=== PATIENT | female | born 1955 | race Caucasian/White ===

== ENCOUNTER 2017-01-26 07:22 | Emergency (ER) | payer OTHER ==
--- NOTE | 2017-01-26 10:28 | DIAGNOSTIC IMAGING REPORT ---
PROCEDURE: XR CHEST 1 VIEW INDICATION: CHEST PAIN TECHNIQUE: Portable AP view 09:40 a.m. COMPARISON: Chest 11/19/2015 FINDINGS: Lungs are clear. Heart and mediastinum are normal. Thorax is normal. IMPRESSION: 1. Negative chest.
--- NOTE | 2017-01-26 10:59 | DIAGNOSTIC IMAGING REPORT ---
PROCEDURE: ABDOMEN/PELVIS WITH CONTRAST CLINICAL INDICATION: RLQ AND FLANK PAIN TECHNIQUE: 125 ml of Isovue 300 were injected intravenously and axial images were obtained of the abdomen and pelvis with sagittal and coronal reformations. COMPARISON: None. FINDINGS: ABDOMEN: Mild atelectatic changes anteriorly bilaterally. Heart size is at the upper limits of normal. Small hiatal hernia. Multiple ingested pills sitting in the proximal stomach. Normal caliber abdominal aorta with moderate to heavy calcific atherosclerosis. Sub-centimeter upper pole cortical left renal cyst. Otherwise normal liver, gallbladder, adrenal glands, pancreas, right kidney, spleen, retroperitoneal vessels and ureters, stomach, upper bowel loops, and mesentery. A portion of the proximal colon sits dorsally in the right pericolic gutter. A short segment measuring about 3.5 cm of mid proximal colon demonstrates eccentric wall thickening, decreased luminal diameter, and mild hyperemia. Trace amount of pericolonic inflammation in this region and thickening of the lateral coronal fascia. Multiple small lymph nodes in the mesentery are seen. No extraluminal gas, diverticulosis, or adjacent fluid collection. The appendix is normal. PELVIS: The pelvic small bowel loops are normal. Normal amount of stool in the colon and rectum. The uterus, ovaries, urinary bladder, and pelvic vessels are normal. No adenopathy, free fluid, or pelvic mass. Intact osseous structures. IMPRESSION: 1. There is a short segment in the proximal colon demonstrating wall thickening, decreased luminal diameter, and trace pericolonic inflammation. While this could represent an early mild infectious colitis or potentially segmental colon contraction, neoplastic changes are suspected. Colonoscopy is recommended 2. Normal appendix. 3. Moderate to heavy systemic atherosclerosis. 4. Discussed with Dr. Argueta in the emergency room. All CT scans at this facility use dose modulation, iterative reconstruction, and/or weight-based dosing when appropriate to reduce radiation dose to as low as reasonably achievable.
--- NOTE | 2017-01-26 11:44 | ED CLINICAL REPORT ---
Clinical Report - Physicians/Mid Levels [facility] [address] [place] [address] 01/26/2017 7:23 Patient: RAHEL CHAMPAGNE Time Seen: 07:48. Arrived- By private vehicle. Historian- patient. HISTORY OF PRESENT ILLNESS Chief Complaint: ABDOMINAL PAIN. At its maximum, severity described as 8 / 10. When seen in the E.D., severity described as 8 / 10. Modifying factors. Not worsened by anything. Not relieved by anything. This started about about 5 days ago and is still present. It was abrupt in onset and has been intermittent and waxing/waning. It is described as cramping and it is described as located in the right lower quadrant and radiating to the low back. The patient has had nausea. No loss of appetite or vomiting. She has had loose stools (several days ago - normal since). This has occurred several times. Similar symptoms previously: None. REVIEW OF SYSTEMS No skin rash, chills, fever, calf pain or difficulty breathing. No pedal edema or palpitations. She has experienced sweats. She has had moderate, squeezing central chest pain (last week), currently gone, associated with shortness of breath. Has had similar symptoms of chest pain previously. No radiation. She has had a mild nonproductive cough (she attributes this to recent bronchitis that is improving). All systems otherwise negative, except as recorded above. PAST HISTORY See nurses notes. PCP - Ene Tirado. Problems: Sick Contact. Hives. Abdominal Pain. Tension-Type Headache. Anemia. Allergic Rhinitis. Hypokalemia. UTI - Urinary Tract Infection. Vertigo. Lumbar Strain. Depression. Bipolar Disorder. Fibromyalgia. Hypertension. Gastroesophageal Reflux Disease. Additional Surgeries: Breast biopsy. Medications: Omeprazole Oral. Hydrochlorothiazide Oral. Diovan Oral. Loratadine Oral 10 mg, daily. Allergies: No Known Drug Allergy. SOCIAL HISTORY Never smoker. No alcohol use or drug use. FAMILY HISTORY Heart disease in first-degree relative (mother and father); cancer in first-degree relative (mother). ADDITIONAL NOTES The nursing notes have been reviewed. PHYSICAL EXAM Vital Signs: 01/26/2017 07:31 BP: 189/89. HR: 82. RR: 18. O2 saturation: 100%. Temp: 98.5 F. Pain level now: 810. Have been reviewed. Appearance: Alert. Oriented X3. No acute distress. Eyes: Pupils equal, round and reactive to light. ENT: Pharynx normal. The mucous membranes are not dry. Neck: Normal inspection. Neck supple. CVS: Normal heart rate and rhythm. Heart sounds normal. Pulses normal. No decreased pulses. Respiratory: No respiratory distress. Breath sounds normal. Abdomen: Soft. Mild tenderness in the right upper quadrant. Bowel sounds normal. No organomegaly. No mass. LABS, X-RAYS, AND EKG Abdominal CT: PROCEDURE: ABDOMEN/PELVIS WITH CONTRAST CLINICAL INDICATION: RLQ AND FLANK PAIN TECHNIQUE: 125 ml of Isovue 300 were injected intravenously and axial images were obtained of the abdomen and pelvis with sagittal and coronal reformations. COMPARISON: None. FINDINGS: ABDOMEN: Mild atelectatic changes anteriorly bilaterally. Heart size is at the upper limits of normal. Small hiatal hernia. Multiple ingested pills sitting in the proximal stomach. Normal caliber abdominal aorta with moderate to heavy calcific atherosclerosis. Sub-centimeter upper pole cortical left renal cyst. Otherwise normal liver, gallbladder, adrenal glands, pancreas, right kidney, spleen, retroperitoneal vessels and ureters, stomach, upper bowel loops, and mesentery. A portion of the proximal colon sits dorsally in the right pericolic gutter. A short segment measuring about 3.5 cm of mid proximal colon demonstrates eccentric wall thickening, decreased luminal diameter, and mild hyperemia. Trace amount of pericolonic inflammation in this region and thickening of the lateral coronal fascia. Multiple small lymph nodes in the mesentery are seen. No extraluminal gas, diverticulosis, or adjacent fluid collection. The appendix is normal. PELVIS: The pelvic small bowel loops are normal. Normal amount of stool in the colon and rectum. The uterus, ovaries, urinary bladder, and pelvic vessels are normal. No adenopathy, free fluid, or pelvic mass. Intact osseous structures. IMPRESSION: 1. There is a short segment in the proximal colon demonstrating wall thickening, decreased luminal diameter, and trace pericolonic inflammation. While this could represent an early mild infectious colitis or potentially segmental colon contraction, neoplastic changes are suspected. Colonoscopy is recommended 2. Normal appendix. 3. Moderate to heavy systemic atherosclerosis. Study type: abdomen and pelvis. Abdominal CT performed with IV contrast. The study was independently viewed by me and interpreted by the radiologist. The study was discussed with the radiologist (via phone and pacs). Laboratory Tests: UA-Culture if indicated: (THOM: 01/26/2017 10:55) ( MsgRcvd 01/26/2017 11:18) Final results Test Result Flag Units (Reference) URINE COLOR STRAW URINE APPEARANCE CLEAR URINE GLUCOSE NEGATIVE (NEGATIVE) URINE BILIRUBIN NEGATIVE (NEGATIVE) URINE KETONE NEGATIVE (NEGATIVE) URINE SPECIFIC GRAVITY 1.010 (1.010-1.030) URINE PH 8.0 (5.0-8.0) URINE PROTEIN NEGATIVE (NEGATIVE) URINE UROBILINOGEN 0.2 EU/dL (0.2-1.0) URINE NITRITE NEGATIVE (NEGATIVE) URINE BLOOD NEGATIVE (NEGATIVE) URINE LEUK ESTERASE NEGATIVE (NEGATIVE) URINE RBC NONE SEEN rbc/hpf (0-1) URINE WBC NONE SEEN wbc/hpf (0-1) URINE EPITHELIAL CELLS 0-1 EPI/hpf (0-5) URINE BACTERIA NONE SEEN (NONE SEEN) URINE COMMENT CULT NOT INDICATED URINE CULTURES ARE SET-UP BASED ON THE FOLLOWING CRITERIA:POSITIVE NITRITEPOSITIVE LEUKOCYTE ESTERASEGREATER THAN 10 WHITE BLOOD CELLSMODERATE (2+) OR GREATER BACTERIA CBC w Diff: (THOM: 01/26/2017 08:00) ( TngRcvd 01/26/2017 08:16) Final results Test Result Flag Units (Reference) WHITE BLOOD COUNT 4.8 K/uL (4.5-11.5) RED BLOOD COUNT 3.76 L M/uL (4.00-5.20) HEMOGLOBIN 8.9 L gm/dL (12.0-16.0) HEMATOCRIT 27.9 L % (36.0-46.0) MEAN CELL VOLUME 74 L fL (80-100) MEAN CORPUSCULAR HGB 24 L pg (26-34) MEAN CORPUSCULAR HGB CONC 32 g/dL (31-37) RED CELL DISTRIBUTION WIDTH 16.5 H % (11.6-14.8) PLATELET COUNT 306 K/uL (150-400) NEUTROPHIL % 51.1 % (50-75) LYMPH % 36.3 % (25-40) MONO % 7.3 % (3-14) EOSINOPHIL % 4.2 H % (0-4) BASOPHIL % 1.1 % (0-2) [id number]: (THOM: 01/26/2017 08:00) ( [facility] 01/26/2017 09:25) Final results Test Result Flag Units (Reference) D-DIMER QUANTITATIVE 0.32 ug/mLFEU (0.27-0.52) The primary value of this quantitative assay relates toits negative predictive value (i.e. exclusion) of pulmonaryembolism/deep vein thrombosis/DIC.Elevated levels of d-dimer may also occur with:, age, cancer, inflammation, liver disease,post-op, infection, hematoma, coronary disease, peripheralarteriopathy, bleeding disorders and thrombolytic treatment.Results should be correlated with other clinical andradiological data.Testing Methodology: Latex Immunoassay PT with INR: (THOM: 01/26/2017 08:00) ( [facility] 01/26/2017 08:22) Final results Test Result Flag Units (Reference) INR 0.9 (0.8-1.2) Low Intensity Therapy: INR 1.5-2.0 PT range 18.5-23.1Mod.Intensity Therapy: INR 2.0-3.0 PT range 23.1-31.5High Intensity Therapy: INR 2.5-3.5 PT range 27.4-35.5High Intensity Therapy 2: INR 3.0-4.0 PT range 31.5-39.3 Troponin-I: (THOM: 01/26/2017 08:00) ( [facility] 01/26/2017 10:58) Final results Test Result Flag Units (Reference) TROPONIN I <0.05 ng/mL (0.00-1.5) TROPONIN REFERENCE RANGE:<0.1 NEGATIVE0.1-1.5 INDETERMINANT>1.5 POSITIVE Magnesium: (THOM: 01/26/2017 08:00) ( MsgRcvd 01/26/2017 09:38) Final results Test Result Flag Units (Reference) MAGNESIUM 1.7 L mg/dL (1.8-2.4) BNP: (THOM: 01/26/2017 08:00) ( MsgRcvd 01/26/2017 09:42) Final results Test Result Flag Units (Reference) B-TYPE NATRIURETIC PEPTIDE 91.4 pg/ml (5-100) CMP: (THOM: 01/26/2017 08:00) ( MsgRcvd 01/26/2017 08:27) Final results Test Result Flag Units (Reference) GLUCOSE 106 mg/dL (70-110) BUN 14 mg/dL (7-18) CREATININE 0.8 mg/dL (0.6-1.3) Estimated GFR >60 mL/min Estimated GFR- >60 mL/min Note: Persistent reduction over 3 months in eGFR<60 mL/min/1.73 m2 defines CKD. Patients with eGFR values>=60 mL/min/1.73 m2 may also have CKD if evidence ofpersistent proteinuria. Additional information may be foundat www.kidney.org. SODIUM 145 mmol/L (136-145) POTASSIUM 3.4 L mmol/L (3.5-5.1) CHLORIDE 107 mmol/L (98-107) CARBON DIOXIDE 27 mmol/L (21-32) CALCIUM 8.1 L mg/dL (8.5-10.1) TOTAL PROTEIN 7.4 g/dL (6.4-8.2) ALBUMIN 3.3 g/dL (3.3-5.0) BILIRUBIN, TOTAL 0.2 mg/dL (0.0-1.0) ALKALINE PHOSPHATASE 68 U/L (46-116) AST (SGOT) 16 U/L (15-37) ALT (SGPT) 18 U/L (12-78) LIPASE 127 U/L (73-393) AMYLASE 48 U/L (25-115) . PROGRESS AND PROCEDURES Course of Care: he patient is a pleasant 61-year-old female presenting for reevaluation of right lower quadrant abdominal pain. The patient was initially seen by the outgoing provider. At the change of shift I have taken over the patient's care. Plans follow-up on the patient's laboratory studies including urinalysis. There is also some concern that the patient has been having chest pain for the past week. It has resolved spontaneously. Patient is otherwise at low risk for acute myocardial infarction. Patient will be evaluated because of the chest pain with troponin as well as d-dimer. Patient is agreeable to the treatment plan. No of acute abdomen maladies noted. Patient appears nontoxic and is in no acute distress. Patient's workup was remarkable for the findings above. Patient's CT scan of the abdomen With findings noted above. Antibodies ordered for infectious colitis. Because of the findings on CT scan, also was concerned for colon cancer. Patient with negative colonoscopy however this is greater than 10 years ago. Because of the patient's presentation, contacted general surgery was able to schedule a preoperative appointment later today And possible colonoscopy the next day. D-dimer and troponin are noted to be normal. No signs of urinary tract infection. Because of the patient's workup here in the emergency department, do not feel patient is being admitted to the hospital require further emergency department workup/evaluation. Patient will be instructed to follow-up with cardiology in regards to her chest pain that occurred last week. Do not fill patient is having acute myocardial infarction, pulmonary embolism, mesenteric ischemia, or acute appendicitis. Urinalysis does not show any signs of urinary tract infection or pyelonephritis. Prior to patient's discharge from the emergency department she was noted to be resting in bed and in no acute distress. Discussed with the patient workup here in the emergency department included home care, follow-up, return precautions,and diagnosis. All questions have been answered. The patient expressed understanding of these instructions and was agreeable to them. Consult obtained from surgery. Disposition: Discharged. Condition: good. CLINICAL IMPRESSION Acute right lower quadrant abdominal pain. 01/26/2017 07:31 BP: 189/89. HR: 82. RR: 18. O2 saturation: 100%. Temp: 98.5 F. Pain level now: 8/10. Chest pain characterized as "discomfort" .12 lead EKG performed. Hypertensive. Oxygen saturation normal. Acute colitis. Moderate chronic anemia. Hypokalemia (acute). INSTRUCTIONS Warnings: GENERAL WARNINGS: Return or contact your physician immediately if your condition worsens or changes unexpectedly, if not improving as expected, or if other problems arise. SPECIFICALLY, return if you develop pain, fever, vomiting, the inability to keep fluids down, blood in vomitus, blood in diarrhea, fainting or lightheadedness. Your Current Medications: CONTINUE TAKING THE FOLLOWING MEDICATIONS: Hydrochlorothiazide Oral. Loratadine Oral : 10 mg daily. Omeprazole Oral. Diovan Oral. Prescription Medications: Zofran (orally disintegrating tablets) 4 mg: take 1 orally every 8 hours as needed for nausea and vomiting. Dispense ten (10). No refill. Substitution is permissible. Cipro 500 mg: take 1 tab orally every 12 hours for 10 days. No refills. Substitution is permissible. (disp 20 tabs) Flagyl 500 mg: Take 1 tablet orally every 8 hours for 10 days. No refill. Substitution is permissible. (Disp 30 each) [place] 5 mg / 325 mg tablets: take 1 orally every 6 hours as needed for pain. Dispense twelve (12). No refill. Substitution is permissible. Follow-up: Return to the emergency department as needed. Follow up with a surgeon. Reason for referral: immediately today for recheck of today's concerns. Summary of care provided to patient via paper. Follow up with your doctor in three days. Reason for referral: recheck today's concerns. Summary of care provided to patient via paper. Follow up with doctor. Screening today revealed the patient's blood pressure to be in the normal range. The patient should follow up with a primary care provider for blood pressure management. Understanding of the discharge instructions verbalized by patient. Follow-up with: Zuleima Marquez MD, Cardiology, , [facility], [address] [place] [address] [address], [facility], [address] Follow up in three days. Reason for referral: recheck today's concerns. Summary of care provided to patient via paper. (Electronically signed by Romain Argueta Dr. 01/29/2017 4:55)
--- NOTE | 2017-01-26 11:44 | ED NURSING NOTES ---
Clinical Report - Nurses [facility] [address] [place] [address] 01/26/2017 7:23 Patient: RAHEL CHAMPAGNE TRIAGE Triage time 0730 AM. Acuity: LEVEL 3. Chief Complaint: ABDOMINAL PAIN and NAUSEA. Alert. No acute distress. JUAN COMA SCORE: Williams Coma Scale: 15- eyes open spontaneously (4); best verbal response- oriented x 4 (5); best motor response- obeys commands (6). --07:44 Kandis Mccauley R.N. 07:31 01/26/17. BP: 189/89 (regular adult cuff) taken on the left arm, via an automated monitor, while sitting. HR: 82. RR: 18. O2 saturation: 100%. Temp: 98.5 F (oral). Pain level now: 05/11. --07:44 Kandis Mccauley R.N. Weight: 87.5 kg. Height/Length: 68 inches. BMI: 29.3. --07:43 Kandis Mccauley R.N. Medications Diovan Oral. Loratadine Oral 10 mg, daily. --07:32 Kandis Mccauley R.N. Hydrochlorothiazide Oral. --07:44 Kandis Mccauley R.N. Omeprazole Oral. --07:44 Kandis Mccauley R.N. The following entry was struck by Kandis Mccauley R.N., 07:43 (01/26/17) Reason - other. <<STRICKEN ENTRY-- Ranitidine HCl Oral (Capsule 300 mg), at bedtime. --07:32 Kandis Mccauley R.N. --END STRIKE>>. Medication/allergy information source: the patient. --07:44 Kandis Mccauley R.N. Allergies No Known Drug Allergy. --07:32 Kandis Mccauley R.N. History Arrived by private vehicle. Historian: patient. Accompanied by family. Primary physician (Ene BEDOYA). ( RLQ pain initiated sudden onset on Monday afternoon, sharp intermittent pain, denies vomiting, fever. Pt does state that laying down makes it worse, and now is radiating to the Right Lower back. Pt denies having trouble urinating, has had diarrhea on monday and monday. Pt also states has been moving and lifting.). This is a new problem and onset was abrupt. Symptoms are intermittent and still present (Monday). She has had mild diarrhea (3 times on monday and monday). This has occurred several times. She has had constipation and abdominal pain. No fever. Treatment ENTERPRISE RESOURCE PLANNING CONSULTANT: None. PAST MEDICAL HX: Immunizations: up-to-date. Last normal menstrual period- 10 years. SOCIAL HX: Never smoker. No alcohol use or drug use. No recent travel. She has had contact with a sick family member. (bronchitis). No infectious disease exposure. ABUSE ASSESSMENT: No report of abuse. SELF HARM ASSESSMENT: A self harm assessment was performed. The patient answered "no" to the question "Do you have thoughts of harming or killing yourself?" and "Have you recently had thoughts about harming or killing others?". FALL RISK ASSESSMENT: Fall risk assessment completed. No fall risk identified. NUTRITIONAL RISK ASSESSMENT: The nutritional risk assessment revealed no deficiencies. FUNCTIONAL ASSESSMENT: Functional assessment: no impairments noted. LEARNING NEEDS ASSESSMENT: The learning needs assessment revealed no barriers. SKIN INTEGRITY ASSESSMENT: Skin integrity risk assessment completed. No skin integrity risk identified. --07:44 Kandis Mccauley R.N. PROBLEMS: Abdominal Pain. Tension-Type Headache. Anemia. Allergic Rhinitis. Hypokalemia. UTI - Urinary Tract Infection. Vertigo. Depression. Bipolar Disorder. Fibromyalgia. Hypertension. Gastroesophageal Reflux Disease. --07:33 Kandis Mccauley R.N. ADDITIONAL SURGERIES: Breast biopsy. --07:33 Kandis Mccauley R.N. Interventions 07:33 01/26/17. ID band on patient. --07:44 Kandis Mccauley R.N. PHYSICAL ASSESSMENT Ambulatory to room. GENERAL / NEURO / PSYCH: Alert. Oriented X 4. Appears in pain. HEENT: Mucous membranes are pink. RESPIRATORY: Respirations not labored. Breath sounds within normal limits. CVS: Capillary refill less than 2 seconds. GI / : The patient has diarrhea. Abdomen soft and nontender. Bowel sounds within normal limits. No abdominal tenderness, rebound tenderness or guarding. SKIN: Skin is warm and dry. --07:45 Kandis Mccauley R.N. NURSING PROGRESS NOTES The initial plan of care for this patient has been created This plan of care was discussed with the patient. Patient gowned. Warming measures: blanket applied. Reassurance given. Two patient identifiers checked. Call light placed in reach. Side rails up x 1. Bed placed in lowest position. Brakes of bed on. --07:45 Kandis Mccauley R.N. 07:59 01/26/2017 Site #1 started via IV in the left antecubital space with an 20g angiocath. Blood drawn: rainbow set. Labeled in the presence of the patient and sent to the lab. --07:59 Kandis Mccauley R.N. EKG time: (09:06 AM). EKG was performed by a tech and shown to the ED physician. --09:18 Carol Llanos 09:01/26/2017 Started bag #1 999 mL IV Fluids IV NS (Saline); at 500 mL/hr over 1 hour(s) via site #1 via IV pump. Allergies verified and confirmed 5 rights. IV patency established. IV site checked: no pain, redness, or swelling. IV flushed thoroughly pre- and post-medication administration. --: Kandis Mccauley R.N. 09:01/26/2017 Zofran (Ondansetron HCl) IVP 4 mg given over 2 minute(s) via site #1. Allergies verified and confirmed 5 rights. IV patency established. IV site checked: no pain, redness, or swelling. IV flushed thoroughly pre- and post-medication administration. IVP given by RN. --: Kandis Mccauley R.N. :01/26/2017 Dilaudid (HYDROmorphone HCl PF) IVP 0.5 mg given over 1 minute(s) via site #1. Allergies verified, confirmed 5 rights and sedative warning given to the patient. IV patency established. IV site checked: no pain, redness, or swelling. IV flushed thoroughly pre- and post-medication administration. IVP given by RN. --: Kandis Mccauley R.N. Cardiac rhythm: normal sinus rhythm. senior mechanical project manager, pulse oximeter and NIBP monitor placed on patient; monitor alarms on. Reassurance given. The patient is calm. GI / : The patient reports nausea. The patient reports abdominal pain. Denies diarrhea or vomiting. SKIN: Skin color within normal limits. Two patient identifiers checked. Call light placed in reach. --09:29 Kandis Mccauley R.N. 09:28 01/26/17. BP: 197/92. HR: 68. RR: 14. O2 saturation: 96% on room air. Pain level now: 02/08. --09:29 Kandis Mccauley R.N. 09:41 01/26/2017 Potassium Chloride (Potassium Chloride ER) PO 60 meq given. Allergies verified and confirmed 5 rights. --09:41 Kandis Mccauley R.N. 10:28 01/26/2017 Potassium Chloride PO Response: no adverse reaction. --10:43 Kandis Mccauley R.N. 10:57 01/26/2017 PHENERGAN (Promethazine HCl) IVP 12.5 mg given over 1 minute(s) via site #1. Allergies verified and confirmed 5 rights. IV patency established. IV site checked: no pain, redness, or swelling. IV flushed thoroughly pre- and post-medication administration. IVP given by RN. --10:57 Kandis Mccauley R.N. Patient ID band checked for patient name and birthdate: patient confirmed. Instructions provided to collect clean catch urine and patient verbalized understanding. Clean catch urine collected with return of yellow-colored urine; odor is normal; sample sent to lab for urinalysis and culture. Specimen labeled in the presence of the patient. --11:12 ErvinCarol torre 11:57 01/26/2017 Ciprofloxacin (Ciprofloxacin) PO Tablets 500 mg given. Allergies verified and confirmed 5 rights. --12:07 Sachi Lagos R.N. 12:02 01/26/2017 Flagyl (MetroNIDAZOLE) PO Tablets 500 mg given. Allergies verified and confirmed 5 rights. --12:07 Sachi Lagos R.N. 12:00. Reassessment after fluids administered, procedure and medication administered. She is resting quietly. Overall patient status is improved- she states feels better. SKIN: Skin is warm and dry. --12:09 Sachi Lagos R.N. DISPOSITION / DISCHARGE 11:46 01/26/17. BP: 172/80 (regular adult cuff) taken on the right arm, via an automated monitor, while lying. HR: 62. RR: 16. O2 saturation: 100% on nasal cannula at 1 liters/minute. Temp: 98.1 F. Pain level now: 10/11. --11:48 Carol Llanos 12:03 01/26/2017 Site #1 removed upon discharge. Catheter intact. Bandaid applied. --12:08 Sachi Lagos R.N. Departure time: 1200. Condition at departure: improved and stable. No learning barriers present. Discharge instructions provided and reviewed with the patient and family. Reviewed medication(s). Prescription(s) given to the patient. Patient and family verbalized understanding. Written instructions provided in Georgian. The patient was discharged home and accompanied by family. She left the Emergency Department ambulatory and via private vehicle. FALL RISK ASSESSMENT: Fall risk assessment completed. No fall risk identified. --12:08 Sachi Lagos R.N. Locked/Released at 01/26/2017 12:11 by Sachi Lagos R.N.
--- NOTE | 2017-01-26 11:44 | ED ORDER SUMMARY ---
..... Patient: RAHEL CHAMPAGNE OrderSheet [facility] VisitID: [id number] [address] [place] [address] 61y, F Registration Date/Time: 01/26/2017 ORDER SHEET Weight: 87.5 kg Allergies: No Known Drug Allergy GENERAL ORDERS: CMP Urgent (08:00 01/26/2017 EHassan R.N. per protocol) (Ack 8:01 KHoerner) (8:12 EHassan R.N.) UA-Culture if indicated Urgent (08:01/26/2017 EHassan R.N. per protocol) (Ack 8:01 KHoerner) (11:02 KHoerner) Amylase Urgent (:01/26/2017 EHassan R.N. per protocol) (Ack 8:01 KHoerner) (8:12 EHassan R.N.) Lipase Urgent (:01/26/2017 EHassan R.N. per protocol) (Ack 8:01 KHoerner) (8:12 EHassan R.N.) PT with INR Urgent (08:01/26/2017 EHassan R.N. per protocol) (Ack 8:01 KHoerner) (8:12 EHassan R.N.) CBC w Diff Urgent (08:01/26/2017 EHassan R.N. per protocol) (Ack 8:01 KHoerner) (8:12 EHassan R.N.) NPO (08:01/26/2017 EHassan R.N. per protocol) (Ack 8:02 KHoerner) (8:12 EHassan R.N.) Chest 1V Urgent (09:01/26/2017 Ailyn ELDER) (Ack 9:15 KHoerner) (9:28 EHassan R.N.) Literacy Coordinator (Continuous) (09:01/26/2017 Ailyn ELDER) (9:25 EHassan R.N.) D-Dimer Urgent (09:01/26/2017 Ailyn ELDER) (Ack 9:15 KHoerner) (9:25 EHassan R.N.) BNP Urgent (09:11 01/26/2017 Ailyn ELDER) (Ack 9:15 ROBERToerner) (9:25 Jacob R.N.) Oxygen (2 L/min) (NC) (09:11 01/26/2017 Ailyn ELDER) (9:25 Jacob R.N.) Pulse oximeter (09:01/26/2017 Ailyn ELDER) (9:25 Jacob R.N.) EKG - ER Stat (09:01/26/2017 Ailyn ELDER) (9:17 RKaruga) Magnesium Urgent (09:01/26/2017 Matty Marcial) (Ack 9:29 ROBERToediane) (10:14 ROBERToediane) CT Abd/Pel w Cont (No) (gfr > 60) Urgent (10:11 01/26/2017 Matty Marcial) (Ack 10:14 Tom) (10:57 Jacob R.N.) Troponin-I Urgent (10:12 01/26/2017 Matty Marcial) (Ack 10:14 Tom) (12:11 Selwyn R.N.) MEDICATION ORDERS: Potassium Chloride PO 60 meq (NOW) (09:01/26/2017 Matty Marcial) (9:41 Jaocb R.N.) Phenergan IV 12.5 mg (HIGH ALERT MEDICATION, NOW) (10:02 01/26/2017 Matty Marcial) (Hold 10:32 Jacob R.N.) (10:57 Jacob R.N.) Ciprofloxacin PO 500 mg (NOW) (11:18 01/26/2017 Matty Marcial) (Ack 11:49 Selwyn R.NMelani) (12:07 Selwyn R.N.) Flagyl PO 500 mg (NOW) (11:19 01/26/2017 Matty Marcial) (Ack 11:49 Selwyn R.NMelani) (12:07 Selwyn R.N.) IV FLUIDS: IV Saline Lock (08:00 01/26/2017 Jacob Quinones per protocol) (8:01 Jacob R.N.) IV NS : initial bolus 500 mL (1000 mL/hr), then 125 mL/hr for 4h (NOW); Urgent (09:10 01/26/2017 Ailyn ELDER) (9:25 Jacob R.N.) Zofran IV 4 mg (NOW) (09:01/26/2017 Ailyn ELDER) (9:25 Jacob R.N.) Dilaudid IV 0.5 mg (HIGH ALERT MEDICATION, NOW) (09:01/26/2017 Ailyn ELDER) (9:25 Jacob Jesus.N.) ORDER SHEET NOTES: [Electronically signed by Sachi Lagos R.N. (12:11 01/26/2017)] [Electronically signed by Romain Argueta Dr. (04:55 01/29/2017)] [Electronically locked/signed by Sachi Lagos R.N. (12:11 01/26/2017)]
--- NOTE | 2017-01-26 11:44 | ED ORDER SUMMARY ---
..... Patient: RAHEL CHAMPAGNE OrderSheet [facility] VisitID: [id number] [address] [place] [address] 61y, F Registration Date/Time: 01/26/2017 ORDER SHEET Weight: 87.5 kg Allergies: No Known Drug Allergy GENERAL ORDERS: CMP Urgent (08:00 01/26/2017 EHassan R.N. per protocol) (Ack 8:01 KHoerner) (8:12 EHassan R.N.) UA-Culture if indicated Urgent (08:01/26/2017 EHassan R.N. per protocol) (Ack 8:01 KHoerner) (11:02 KHoerner) Amylase Urgent (:01/26/2017 EHassan R.N. per protocol) (Ack 8:01 KHoerner) (8:12 EHassan R.N.) Lipase Urgent (:01/26/2017 EHassan R.N. per protocol) (Ack 8:01 KHoerner) (8:12 EHassan R.N.) PT with INR Urgent (08:01/26/2017 EHassan R.N. per protocol) (Ack 8:01 KHoerner) (8:12 EHassan R.N.) CBC w Diff Urgent (08:01/26/2017 EHassan R.N. per protocol) (Ack 8:01 KHoerner) (8:12 EHassan R.N.) NPO (08:01/26/2017 EHassan R.N. per protocol) (Ack 8:02 KHoerner) (8:12 EHassan R.N.) Chest 1V Urgent (09:01/26/2017 Ailyn ELDER) (Ack 9:15 KHoerner) (9:28 EHassan R.N.) Information Technology Audit Manager (Continuous) (09:01/26/2017 Ailyn ELDER) (9:25 EHassan R.N.) D-Dimer Urgent (09:01/26/2017 Ailyn ELDER) (Ack 9:15 KHoerner) (9:25 EHassan R.N.) BNP Urgent (09:11 01/26/2017 Ailyn ELDER) (Ack 9:15 ROBERToerner) (9:25 Jacob R.N.) Oxygen (2 L/min) (NC) (09:11 01/26/2017 Ailyn ELDER) (9:25 Jacob R.N.) Pulse oximeter (09:01/26/2017 Ailyn ELDER) (9:25 Jacob R.N.) EKG - ER Stat (09:01/26/2017 Ailyn ELDER) (9:17 RKaruga) Magnesium Urgent (09:01/26/2017 Matty Marcial) (Ack 9:29 ROBERToediane) (10:14 ROBERToedinae) CT Abd/Pel w Cont (No) (gfr > 60) Urgent (10:11 01/26/2017 Matty Marcial) (Ack 10:14 Tom) (10:57 Jacob R.N.) Troponin-I Urgent (10:12 01/26/2017 Matty Marcial) (Ack 10:14 Tom) (12:11 Selwyn R.N.) MEDICATION ORDERS: Potassium Chloride PO 60 meq (NOW) (09:01/26/2017 Matty Marcial) (9:41 Jacob R.N.) Phenergan IV 12.5 mg (HIGH ALERT MEDICATION, NOW) (10:02 01/26/2017 Matty Marcial) (Hold 10:32 Jacob R.N.) (10:57 Jacob R.N.) Ciprofloxacin PO 500 mg (NOW) (11:18 01/26/2017 Matty Marcial) (Ack 11:49 Selwyn R.NMelani) (12:07 Selwyn R.N.) Flagyl PO 500 mg (NOW) (11:19 01/26/2017 Matty Marcial) (Ack 11:49 Selwyn R.NMelani) (12:07 Selwyn R.N.) IV FLUIDS: IV Saline Lock (08:00 01/26/2017 Jacob Quinones per protocol) (8:01 Jacob R.N.) IV NS : initial bolus 500 mL (1000 mL/hr), then 125 mL/hr for 4h (NOW); Urgent (09:10 01/26/2017 Ailyn ELDER) (9:25 Jacob R.N.) Zofran IV 4 mg (NOW) (09:01/26/2017 Ailyn ELDER) (9:25 Jacob R.N.) Dilaudid IV 0.5 mg (HIGH ALERT MEDICATION, NOW) (09:01/26/2017 Ailyn ELDER) (9:25 Jacob Jesus.N.) ORDER SHEET NOTES: [Electronically signed by Sachi Lagos R.N. (12:11 01/26/2017)] [Electronically signed by Romain Argueta Dr. (04:55 01/29/2017)] [Electronically locked/signed by Sachi Lagos R.N. (12:11 01/26/2017)]
[2017-01-27] MEDS ORDERED: BENADRYL ALLERG25 M1 PO (13:24)
[2017-01-27] MEDS ORDERED: PRILOSEC20 MG (13:25)
[2017-01-27] MEDS ORDERED: HYDROCHLOROTHIA25 MG PO (13:25)
[2017-01-27] MEDS ORDERED: VENTOLIN HFA IN (13:26)
[2017-01-27] MEDS ORDERED: VALSARTAN80 MG PO (13:26)
--- NOTE | 2017-01-29 04:55 | ED DISCHARGE INSTRUCTIONS ---
Patient: RAHEL CHAMPAGNE General Instructions [facility] VisitID: [id number] [address] [place] [address] 61y, F Registration Date/Time: 01/26/2017 Acute right lower quadrant abdominal pain. 01/26/2017 07:31 BP: 189/89. HR: 82. RR: 18. O2 saturation: 100%. Temp: 98.5 F. Pain level now: 8/10. Chest pain characterized as "discomfort" .12 lead EKG performed. Hypertensive. Oxygen saturation normal. Acute colitis. Moderate chronic anemia. Hypokalemia (acute). INSTRUCTIONS Warnings: GENERAL WARNINGS: Return or contact your physician immediately if your condition worsens or changes unexpectedly, if not improving as expected, or if other problems arise. SPECIFICALLY, return if you develop pain, fever, vomiting, the inability to keep fluids down, blood in vomitus, blood in diarrhea, fainting or lightheadedness. Your Current Medications: CONTINUE TAKING THE FOLLOWING MEDICATIONS: Hydrochlorothiazide Oral. Loratadine Oral : 10 mg daily. Omeprazole Oral. Diovan Oral. Prescription Medications: Zofran (orally disintegrating tablets) 4 mg: take 1 orally every 8 hours as needed for nausea and vomiting. Dispense ten (10). No refill. Substitution is permissible. Cipro 500 mg: take 1 tab orally every 12 hours for 10 days. No refills. Substitution is permissible. (disp 20 tabs) Flagyl 500 mg: Take 1 tablet orally every 8 hours for 10 days. No refill. Substitution is permissible. (Disp 30 each) [place] 5 mg / 325 mg tablets: take 1 orally every 6 hours as needed for pain. Dispense twelve (12). No refill. Substitution is permissible. Follow-up: Return to the emergency department as needed. Follow up with a surgeon. Reason for referral: immediately today for recheck of today's concerns. Summary of care provided to patient via paper. Follow up with your doctor in three days. Reason for referral: recheck today's concerns. Summary of care provided to patient via paper. Follow up with doctor. Screening today revealed the patient's blood pressure to be in the normal range. The patient should follow up with a primary care provider for blood pressure management. Understanding of the discharge instructions verbalized by patient. Follow-up with: Zuleima Marquez MD, Cardiology, , [facility] [place], [address], [place], [address] Follow up in three days. Reason for referral: recheck today's concerns. Summary of care provided to patient via paper. ADDITIONAL INFORMATION Abdominal Pain, Unknown Cause (Female) The exact cause of your abdominal (stomach) pain is not certain. This does not mean that this is something to worry about, or the right tests were not done. Everyone likes to know the exact cause of the problem, but sometimes with abdominal pain, there is no clear-cut cause, and this could be a good thing. The good news is that your symptoms can be treated, and you will feel better. Your condition does not seem serious now; however, sometimes the signs of a serious problem may take more time to appear. For this reason,it is important for you to watch for any new symptoms, problems,or worsening of your condition. Over the next few days, the abdominal pain may come and go, or be continuous. Other common symptoms can include nausea and vomiting. Sometimes it can be difficult to tell if you feel nauseous, you may just feel bad and not associate that feeling with nausea. Constipation, diarrhea, and a fever may go along with the pain. The pain may continue even if treated correctly over the following days. Depending on how things go, sometimes the cause can become clear and may require further or different treatment. Additional evaluations, medications, or tests may be needed. Home care Your health care provider may prescribe medications for pain, symptoms, or an infection. Follow the health care provider's instructions for taking these medications. General care Rest until your next exam. No strenuous activities. Try to find positions that ease discomfort. A small pillow placed on the abdomen may help relieve pain. Something warm on your abdomen (such as a heating pad) may help, but be careful not to burn yourself. Diet Do not force yourself to eat, especially if having cramps, vomiting, or diarrhea. Water is important so you do not get dehydrated. Soup may also be good. Sports drinks may also help, especially if they are not too acidic. Make sure you don't drink sugary drinks as this can make things worse. Take liquids in small amounts. Do not guzzle them. Caffeine sometimes makes the pain and cramping worse. Avoid dairy products if you have vomiting or diarrhea. Don't eat large amounts at a time. Wait a few minutes between bites. Eat a diet low in fiber (called a low-residue diet). Foods allowed include refined breads, white rice, fruit and vegetable juices without pulp, tender meats. These foods will pass more easily through the intestine. Avoid whole-grain foods, whole fruits and vegetables, meats, seeds and nuts, fried or fatty foods, dairy, alcohol and spicy foods until your symptoms go away. Follow-up care Follow up with your health care provider as instructed, or if your pain does not begin to improve in the next 24 hours. When to seek medical care Seek prompt medical care if any of the following occur: Pain gets worse or moves to the right lower abdomen New or worsening vomiting or diarrhea Swelling of the abdomen Unable to pass stool for more than three days Fever of 100.4F (38C) or higher, or as directed by your healthcare provider. Blood in vomit or bowel movements (dark red or black color) Jaundice (yellow color of eyes and skin) Weakness, dizziness Chest, arm, back, neck or jaw pain Unexpected vaginal bleeding or missed period Call 911 Call emergency services if any of the following occur: Trouble breathing Confusion Fainting or loss of consciousness Rapid heart rate Seizure Abdominal Pain,Possible Appendicitis [Repeat Exam, Female] Based on your visit today, the exact cause of your abdominal (stomach) pain is not certain. However, you do have some of the early signs of APPENDICITIS. Early in an appendix infection the symptoms can be similar to a simple "stomach ache" or "stomach flu". Therefore, the diagnosis can be hard to make. Since an appendix infection is a serious condition, it is important to know if this is the cause of your symptoms. WAITING for more time to pass and repeating the exam is the best way to find out whether you have appendicitis. Within the next 12-24 hours the cause of your stomach pain should become clear. It is important for you to watch for any new symptoms or worsening of your condition. (See below). Home Care: Rest until your next exam. No strenuous activities. Eat a diet low in fiber (called a low-residue diet). Foods allowed include refined breads, white rice, fruit and vegetable juices without pulp, tender meats. These foods will pass more easily through the intestine. Avoid whole-grain foods, whole fruits and vegetables, meats, seeds and nuts, fried or fatty foods, dairy, alcohol and spicy foods until your symptoms go away. In some cases, you may be asked not to eat or drink anything until you are re-examined. Return for another exam exactly as directed. Follow Up with your doctor or this facility as directed. Get Prompt Medical Attention if any of the following occur: Pain gets worse or moves to the right lower abdomen New or worsening vomiting or diarrhea Swelling of the abdomen Unable to pass stool for more than three days Fever of 100.4F (38C) or higher, or as directed by your healthcare provider Blood in vomit or bowel movements (dark red or black color) Weakness, dizziness or fainting Unexpected vaginal bleeding Anemia [Type Not Specified, Adult] Red blood cells carry oxygen to the tissues of the body. Anemia is a condition where the size or number of red blood cells in the body is reduced. Iron is needed to make red blood cells. The most common cause of anemia is iron deficiency. This may be due to: i) Blood loss (heavy menstrual periods or bleeding from the stomach or intestines); or, ii) Not eating enough iron-containing foods. Other causes of anemia include certain vitamin deficiencies, chronic kidney disease or certain other chronic illnesses. Anemia causes a feeling of being tired and run down. When anemia becomes severe, the skin becomes pale and there is shortness of breath with exertion. Headaches, dizziness, leg cramps with exertion, drowsiness and fatigue are other common symptoms. Home Care: If you are having symptoms of anemia listed above: -- Do not overexert yourself. -- Talk to your doctor before flying on an airplane or traveling to high altitudes. Follow Up with your doctor as advised by our staff. Additional blood testing may be required to determine the exact cause of your anemia. If testing was done on this visit, it may take several days to get all of the results. You may call this facility or follow up with your own doctor to get the results. Get Prompt Medical Attention if any of the following occur: -- Shortness of breath or chest pain -- Worsening of dizziness, fainting -- Vomiting blood or passing red or black-colored stool Anemia, Iron Deficiency [Adult] Anemia is a condition where the size or number of red blood cells in the body is reduced. Iron is needed in the diet to make red cells. The red blood cells carry oxygen to all parts of the body. Anemia limits the delivery of oxygen to where it is needed. This causes a feeling of being tired and run down. When anemia becomes severe, the skin becomes pale and there is shortness of breath with exertion, headaches, dizziness, drowsiness and fatigue. The cause of your anemia is lack of iron in your body. This may occur due to blood loss (for example, heavy menstrual periods or bleeding from the stomach or intestines) or a poor diet (not eating enough iron-containing foods), inability to absorb iron from your diet, or . If the blood count is low enough, an IRON SUPPLEMENT will be prescribed. It usually takes about 2-3 months of treatment with iron supplements to correct an anemia. Severe cases of anemia requires a blood transfusion to rapidly correct symptoms and deliver more oxygen to the cells. Home Care: 1) Increase the iron stores in your body by eating foods high in iron content. This is a natural way of building your blood cells back up again. Beef, liver, spinach and other dark green leafy vegetables, whole grain products, beans and nuts are all natural sources of iron. 2) If you are having symptoms of anemia listed above: -- Do not overexert yourself. -- Talk to your doctor before flying on an airplane or traveling to high altitudes. Follow Up with your doctor in 2 months for a repeat red blood cell count, or as recommended by our staff, to be sure that the anemia has been corrected. Get Prompt Medical Attention if any of the following occur or worsen: -- Shortness of breath or chest pain -- Dizziness or fainting -- Vomiting blood or passing red or black-colored stool Chest Pain, Uncertain Cause Chest pain can happen for a number of reasons. Sometimes the cause can not be determined. If yourcondition does not seem serious, and your pain does not appear to be coming from your heart, your doctor may recommend watching it closely. Sometimes the signs of a serious problem take more time to appear. Therefore, watch for the warning signs listed below. Home care After your visit, follow these recommendations: Rest today and avoid strenuous activity. Take any prescribed medicine as directed. Follow-up care Follow up with your doctor or this facility as instructed or if you do not start to feel better within 24 hours. Call 911 Get immediate medical attention if any of the following occur: A change in the type of pain: if it feels different, becomes more severe, lasts longer, or begins to spread into your shoulder, arm, neck, jaw or back Shortness of breath or increased pain with breathing Weakness, dizziness, or fainting Rapid heart beat Get prompt medical attention Call your doctor right away if any of the following occur: Cough with dark colored sputum (phlegm) or blood Fever of 100.4F(38C) or higher, or as directed by your health care provider Swelling, pain or redness in one leg Hypokalemia Hypokalemia means a low level of potassium in the blood. This most often occurs in patients who take diuretics (water pills). It can also occur due to severe vomiting or diarrhea. A mild case usually causes no symptoms. It is only found with blood testing. More severe potassium loss causes generalized weakness, muscle or abdominal cramping, heart palpitations (rapid or irregular heartbeats) and low blood pressure. Home Care: 1) Take any potassium supplements prescribed. 2) Eat foods rich in potassium. The highest amount is found in artichoke, baked potatoes, spinach, cantaloupe, honeydew melon, cod, halibut, salmon, and scallops. White, red, or foote beans are also very good sources. A modest amount is found in orange juice, bananas, carrots, and tomato juice. 3) Certain types of diuretics (water pills), such as Lasix (furosemide), require that you take potassium supplements for as long as you take the diuretic pills. If you are taking a diuretic, discuss the need for potassium supplements with your doctor. Follow Up with your doctor for a repeat blood test within the next week or as advised by our staff. Get Prompt Medical Attention if any of the following occur: -- Increased weakness -- Feeling dizzy -- Irregular heartbeat, extra beats or very fast heart rate -- Fainting spell Ondansetron Hydrochloride Oral tablet What is this medicine? ONDANSETRON (on JACKSON se kale) is used to treat nausea and vomiting caused by chemotherapy. It is also used to prevent or treat nausea and vomiting after surgery. How should I use this medicine? Take this medicine by mouth with a glass of water. Follow the directions on your prescription label. Take your doses at regular intervals. Do not take your medicine more often than directed. Talk to your automotive service technician regarding the use of this medicine in children. Special care may be needed. What side effects may I notice from receiving this medicine? Side effects that you should report to your doctor or health healthcare analyst as soon as possible: allergic reactions like skin rash, itching or hives, swelling of the face, lips or tongue breathing problems dizziness fast or irregular heartbeat feeling faint or lightheaded, falls fever and chills swelling of the hands or feet tightness in the chest Side effects that usually do not require medical attention (report to your doctor or health healthcare analyst if they continue or are bothersome): constipation or diarrhea headache What may interact with this medicine? Do not take this medicine with any of the following medications: -apomorphine -cisapride -dofetilide -dronedarone -pimozide -thioridazine -ziprasidone This medicine may also interact with the following medications: -carbamazepine -phenytoin -rifampicin -tramadol -other medicines that prolong the QT interval (cause an abnormal heart rhythm) What if I miss a dose? If you miss a dose, take it as soon as you can. If it is almost time for your next dose, take only that dose. Do not take double or extra doses. Where should I keep my medicine? Keep out of the reach of children. Store between 2 and 30 degrees C (36 and 86 degrees F). Throw away any unused medicine after the expiration date. What should I tell my health care provider before I take this medicine? They need to know if you have any of these conditions: heart disease history of irregular heartbeat liver disease low levels of magnesium or potassium in the blood an unusual or allergic reaction to ondansetron, granisetron, other medicines, foods, dyes, or preservatives or trying to get breast-feeding What should I watch for while using this medicine? Check with your doctor or health healthcare analyst right away if you have any sign of an allergic reaction. Ciprofloxacin Hydrochloride Oral tablet What is this medicine? CIPROFLOXACIN (sip yon FLOX a sin) is a quinolone antibiotic. It is used to treat certain kinds of bacterial infections. It will not work for colds, flu, or other viral infections. How should I use this medicine? Take this medicine by mouth with a glass of water. Follow the directions on the prescription label. Take your medicine at regular intervals. Do not take your medicine more often than directed. Take all of your medicine as directed even if you think your are better. Do not skip doses or stop your medicine early. You can take this medicine with food or on an empty stomach. It can be taken with a meal that contains dairy or calcium, but do not take it alone with a dairy product, like milk or yogurt or calcium-fortified juice. A special MedGuide will be given to you by the pharmacist with each prescription and refill. Be sure to read this information carefully each time. Talk to your automotive service technician regarding the use of this medicine in children. Special care may be needed. What side effects may I notice from receiving this medicine? Side effects that you should report to your doctor or health healthcare analyst as soon as possible: - allergic reactions like skin rash, itching or hives, swelling of the face, lips, or tongue - breathing problems - confusion, nightmares or hallucinations - feeling faint or lightheaded, falls - irregular heartbeat - joint, muscle or tendon pain or swelling - pain or trouble passing urine -persistent headache with or without blurred vision - redness, blistering, peeling or loosening of the skin, including inside the mouth - seizure - unusual pain, numbness, tingling, or weakness Side effects that usually do not require medical attention (report to your doctor or health healthcare analyst if they continue or are bothersome): - diarrhea - nausea or stomach upset - white patches or sores in the mouth What may interact with this medicine? Do not take this medicine with any of the following medications: cisapride droperidol terfenadine tizanidine This medicine may also interact with the following medications: antacids caffeine cyclosporin didanosine (ddI) buffered tablets or powder medicines for diabetes medicines for inflammation like ibuprofen, naproxen methotrexate multivitamins omeprazole phenytoin probenecid sucralfate theophylline warfarin What if I miss a dose? If you miss a dose, take it as soon as you can. If it is almost time for your next dose, take only that dose. Do not take double or extra doses. Where should I keep my medicine? Keep out of the reach of children. Store at room temperature below 30 degrees C (86 degrees F). Keep container tightly closed. Throw away any unused medicine after the expiration date. What should I tell my health care provider before I take this medicine? They need to know if you have any of these conditions: -bone problems -cerebral disease -joint problems -irregular heartbeat -kidney disease -liver disease -myasthenia gravis -seizure disorder -tendon problems -an unusual or allergic reaction to ciprofloxacin, other antibiotics or medicines, foods, dyes, or preservatives - or trying to get -breast-feeding What should I watch for while using this medicine? Tell your doctor or health healthcare analyst if your symptoms do not improve. Do not treat diarrhea with over the counter products. Contact your doctor if you have diarrhea that lasts more than 2 days or if it is severe and watery. You may get drowsy or dizzy. Do not drive, use machinery, or do anything that needs mental alertness until you know how this medicine affects you. Do not stand or sit up quickly, especially if you are an older patient. This reduces the risk of dizzy or fainting spells. This medicine can make you more sensitive to the sun. Keep out of the sun. If you cannot avoid being in the sun, wear protective clothing and use sunscreen. Do not use sun lamps or tanning beds/booths. Avoid antacids, aluminum, calcium, iron, magnesium, and zinc products for 6 hours before and 2 hours after taking a dose of this medicine. Metronidazole Oral tablet What is this medicine? METRONIDAZOLE ( troe NI da zole) is an antiinfective. It is used to treat certain kinds of bacterial and protozoal infections. It will not work for colds, flu, or other viral infections. How should I use this medicine? Take this medicine by mouth with a full glass of water. Follow the directions on the prescription label. Take your medicine at regular intervals. Do not take your medicine more often than directed. Take all of your medicine as directed even if you think you are better. Do not skip doses or stop your medicine early. Talk to your automotive service technician regarding the use of this medicine in children. Special care may be needed. What side effects may I notice from receiving this medicine? Side effects that you should report to your doctor or health healthcare analyst as soon as possible: allergic reactions like skin rash or hives, swelling of the face, lips, or tongue confusion, clumsiness difficulty speaking discolored or sore mouth dizziness fever, infection numbness, tingling, pain or weakness in the hands or feet trouble passing urine or change in the amount of urine redness, blistering, peeling or loosening of the skin, including inside the mouth seizures unusually weak or tired vaginal irritation, dryness, or discharge Side effects that usually do not require medical attention (report to your doctor or health healthcare analyst if they continue or are bothersome): diarrhea headache irritability metallic taste nausea stomach pain or cramps trouble sleeping What may interact with this medicine? Do not take this medicine with any of the following medications: alcohol or any product that contains alcohol amprenavir oral solution cisapride disulfiram dofetilide dronedarone paclitaxel injection pimozide ritonavir oral solution sertraline oral solution sulfamethoxazole-trimethoprim injection thioridazine ziprasidone This medicine may also interact with the following medications: cimetidine lithium other medicines that prolong the QT interval (cause an abnormal heart rhythm) phenobarbital phenytoin warfarin What if I miss a dose? If you miss a dose, take it as soon as you can. If it is almost time for your next dose, take only that dose. Do not take double or extra doses. Where should I keep my medicine? Keep out of the reach of children. Store at room temperature below 25 degrees C (77 degrees F). Protect from light. Keep container tightly closed. Throw away any unused medicine after the expiration date. What should I tell my health care provider before I take this medicine? They need to know if you have any of these conditions: anemia or other blood disorders disease of the nervous system fungal or yeast infection if you drink alcohol containing drinks liver disease seizures an unusual or allergic reaction to metronidazole, or other medicines, foods, dyes, or preservatives or trying to get breast-feeding What should I watch for while using this medicine? Tell your doctor or health healthcare analyst if your symptoms do not improve or if they get worse. You may get drowsy or dizzy. Do not drive, use machinery, or do anything that needs mental alertness until you know how this medicine affects you. Do not stand or sit up quickly, especially if you are an older patient. This reduces the risk of dizzy or fainting spells. Avoid alcoholic drinks while you are taking this medicine and for three days afterward. Alcohol may make you feel dizzy, sick, or flushed. If you are being treated for a sexually transmitted disease, avoid sexual contact until you have finished your treatment. Your sexual partner may also need treatment. Hydrocodone Bitartrate, Acetaminophen Oral tablet What is this medicine? ACETAMINOPHEN; HYDROCODONE (a set a CHAYITO eden fen; leah droe KOE done) is a pain reliever. It is used to treat mild to moderate pain. How should I use this medicine? Take this medicine by mouth. Swallow it with a full glass of water. Follow the directions on the prescription label. If the medicine upsets your stomach, take the medicine with food or milk. Do not take more than you are told to take. Talk to your automotive service technician regarding the use of this medicine in children. This medicine is not approved for use in children. What side effects may I notice from receiving this medicine? Side effects that you should report to your doctor or health healthcare analyst as soon as possible: allergic reactions like skin rash, itching or hives, swelling of the face, lips, or tongue breathing problems confusion feeling faint or lightheaded, falls stomach pain yellowing of the eyes or skin Side effects that usually do not require medical attention (report to your doctor or health healthcare analyst if they continue or are bothersome): nausea, vomiting stomach upset What may interact with this medicine? alcohol antihistamines isoniazid medicines for depression, anxiety, or psychotic disturbances medicines for sleep muscle relaxants naltrexone narcotic medicines (opiates) for pain phenobarbital ritonavir tramadol What if I miss a dose? If you miss a dose, take it as soon as you can. If it is almost time for your next dose, take only that dose. Do not take double or extra doses. Where should I keep my medicine? Keep out of the reach of children. This medicine can be abused. Keep your medicine in a safe place to protect it from theft. Do not share this medicine with anyone. Selling or giving away this medicine is dangerous and against the law. Store at room temperature between 15 and 30 degrees C (59 and 86 degrees F). Protect from light. Keep container tightly closed. Throw away any unused medicine after the expiration date. Discard unused medicine and used packaging carefully. Pets and children can be harmed if they find used or lost packages. What should I tell my health care provider before I take this medicine? They need to know if you have any of these conditions: brain tumor Crohn's disease, inflammatory bowel disease, or ulcerative colitis drink more than 3 alcohol-containing drinks per day drug abuse or addiction head injury heart or circulation problems kidney disease or problems going to the bathroom liver disease lung disease, asthma, or breathing problems an unusual or allergic reaction to acetaminophen, hydrocodone, other opioid analgesics, other medicines, foods, dyes, or preservatives or trying to get breast-feeding What should I watch for while using this medicine? Tell your doctor or health healthcare analyst if your pain does not go away, if it gets worse, or if you have new or a different type of pain. You may develop tolerance to the medicine. Tolerance means that you will need a higher dose of the medicine for pain relief. Tolerance is normal and is expected if you take the medicine for a long time. Do not suddenly stop taking your medicine because you may develop a severe reaction. Your body becomes used to the medicine. This does NOT mean you are addicted. Addiction is a behavior related to getting and using a drug for a non-medical reason. If you have pain, you have a medical reason to take pain medicine. Your doctor will tell you how much medicine to take. If your doctor wants you to stop the medicine, the dose will be slowly lowered over time to avoid any side effects. You may get drowsy or dizzy when you first start taking the medicine or change doses. Do not drive, use machinery, or do anything that may be dangerous until you know how the medicine affects you. Stand or sit up slowly. There are different types of narcotic medicines (opiates) for pain. If you take more than one type at the same time, you may have more side effects. Give your health care provider a list of all medicines you use. Your doctor will tell you how much medicine to take. Do not take more medicine than directed. Call emergency for help if you have problems breathing. The medicine will cause constipation. Try to have a bowel movement at least every 2 to 3 days. If you do not have a bowel movement for 3 days, call your doctor or health healthcare analyst. Too much acetaminophen can be very dangerous. Do not take Tylenol (acetaminophen) or medicines that contain acetaminophen with this medicine. Many non-prescription medicines contain acetaminophen. Always read the labels carefully. You have been given the following additional information: Abdominal Pain, Unknown Cause, (Female) Abdominal Pain, Possible Appendicitis (Female) Anemia, Type Not Specified (Adult) Anemia, Iron Deficiency (Adult) Chest Pain, Uncertain Cause Hypokalemia Ondansetron Hydrochloride Oral tablet Ciprofloxacin Hydrochloride Oral tablet Metronidazole Oral tablet Hydrocodone Bitartrate, Acetaminophen Oral tablet (Electronically signed by Romain Argueta Dr. 01/29/2017 4:55)
--- NOTE | 2017-01-29 04:56 | ED MED RECONCILIATION SUMMARY ---
Patient: RAHEL CHAMPAGNE Medication Reconciliation Report [facility] VisitID: [id number] [address] [place] [address] 61y, F Registration Date/Time: 01/26/2017 Weight: 87.5 kg Height/Length: 68 in. BMI: 29.3 ALLERGIES: No Known Drug Allergy The patient's Home Medications are listed below: CONTINUE TAKING THE FOLLOWING MEDICATIONS: Diovan Oral Hydrochlorothiazide Oral Loratadine Oral 10 mg, daily Omeprazole Oral The source(s) of the original Home Medication information: patient The following Medications were given to the patient in the Emergency Department: IV NS IV Fluids bolus 0, then 500 mL/hr, administered: 01/26/2017 9:25:00 AM Zofran [IVP] IVP 4 mg, administered: 01/26/2017 9:25:00 AM Dilaudid [IVP] IVP 0.5 mg, administered: 01/26/2017 9:25:00 AM Potassium Chloride [PO] PO 60 meq, administered: 01/26/2017 9:41:00 AM PHENERGAN [IVP] IVP 12.5 mg, administered: 01/26/2017 10:57:00 AM Ciprofloxacin [PO] PO 500 mg, administered: 01/26/2017 11:57:00 AM Flagyl [PO] PO 500 mg, administered: 01/26/2017 12:02:00 PM The following Medications were prescribed to the patient: Zofran (orally disintegrating tablets) 4 mg: take 1 orally every 8 hours as needed for nausea and vomiting. Dispense ten (10). No refill. Substitution is permissible. -- Romain Argueta Dr. Cipro 500 mg: take 1 tab orally every 12 hours for 10 days. No refills. Substitution is permissible.(disp 20 tabs) -- Romain Argueta Dr. Flagyl 500 mg: Take 1 tablet orally every 8 hours for 10 days. No refill. Substitution is permissible.(Disp 30 each) -- Romain Argueta Dr. [place] 5 mg / 325 mg tablets: take 1 orally every 6 hours as needed for pain. Dispense twelve (12). No refill. Substitution is permissible. -- Romain Argueta Dr.
--- NOTE | 2017-01-29 04:56 | ED MAR SUMMARY ---
..... Medication Administration Record [facility] [address] [facility] [place] [address] Patient: RAHEL CHAMPAGNE Visit ID: [id number] 61y, F Weight: 87.5 kg Height/Length: 68 in BMI: 29.3 ALLERGIES: No Known Drug Allergy Start 09:01/26/2017 Kandsi Mccauley R.N. Medication Administered: IV NS (SALINE), Dose: IV Fluids over 1 hour(s), Rate: 500 mL/hr, Dispensed: 999 mL bag, Site: #1 left AC. Medication Ordered: IV NS : initial bolus 500 mL (1000 mL/hr), then 125 mL/hr for 4h (NOW); Urgent. Given 01/26/2017 Kandis Mccauley R.N. Medication Administered: ZOFRAN [IVP] (ONDANSETRON HCL), Dose: 4 mg IVP over 2 minute(s), Site: #1 left AC. Medication Ordered: Zofran IV 4 mg (NOW). Given 01/26/2017 Kandis Mccauley R.N. Medication Administered: DILAUDID [IVP] (HYDROMORPHONE HCL PF), Dose: 0.5 mg IVP over 1 minute(s), Site: #1 left AC. Medication Ordered: Dilaudid IV 0.5 mg (HIGH ALERT MEDICATION, NOW). Given 09:01/26/2017 Kandis Mccauley R.N. Medication Administered: POTASSIUM CHLORIDE [PO] (POTASSIUM CHLORIDE ER), Dose: 60 meq PO. Medication Ordered: Potassium Chloride PO 60 meq (NOW). Given 10:57 01/26/2017 Kandis Mccauley R.N. Medication Administered: PHENERGAN [IVP] (PROMETHAZINE HCL), Dose: 12.5 mg IVP over 1 minute(s), Site: #1 left AC. Medication Ordered: Phenergan IV 12.5 mg (HIGH ALERT MEDICATION, NOW). Given 11:57 01/26/2017 Sachi Lagos R.N. Medication Administered: CIPROFLOXACIN [PO] (CIPROFLOXACIN), Dose: 500 mg Tablets PO. Medication Ordered: Ciprofloxacin PO 500 mg (NOW). Given 12:02 01/26/2017 Sachi Lagos R.N. Medication Administered: FLAGYL [PO] (METRONIDAZOLE), Dose: 500 mg Tablets PO. Medication Ordered: Flagyl PO 500 mg (NOW).
--- NOTE | 2017-01-29 04:56 | ED MED RECONCILIATION SUMMARY ---
Patient: RAHEL CHAMPAGNE Medication Reconciliation Report [facility] VisitID: [id number] [address] [place] [address] 61y, F Registration Date/Time: 01/26/2017 Weight: 87.5 kg Height/Length: 68 in. BMI: 29.3 ALLERGIES: No Known Drug Allergy The patient's Home Medications are listed below: CONTINUE TAKING THE FOLLOWING MEDICATIONS: Diovan Oral Hydrochlorothiazide Oral Loratadine Oral 10 mg, daily Omeprazole Oral The source(s) of the original Home Medication information: patient The following Medications were given to the patient in the Emergency Department: IV NS IV Fluids bolus 0, then 500 mL/hr, administered: 01/26/2017 9:25:00 AM Zofran [IVP] IVP 4 mg, administered: 01/26/2017 9:25:00 AM Dilaudid [IVP] IVP 0.5 mg, administered: 01/26/2017 9:25:00 AM Potassium Chloride [PO] PO 60 meq, administered: 01/26/2017 9:41:00 AM PHENERGAN [IVP] IVP 12.5 mg, administered: 01/26/2017 10:57:00 AM Ciprofloxacin [PO] PO 500 mg, administered: 01/26/2017 11:57:00 AM Flagyl [PO] PO 500 mg, administered: 01/26/2017 12:02:00 PM The following Medications were prescribed to the patient: Zofran (orally disintegrating tablets) 4 mg: take 1 orally every 8 hours as needed for nausea and vomiting. Dispense ten (10). No refill. Substitution is permissible. -- Romain Argueta Dr. Cipro 500 mg: take 1 tab orally every 12 hours for 10 days. No refills. Substitution is permissible.(disp 20 tabs) -- Romain Argueta Dr. Flagyl 500 mg: Take 1 tablet orally every 8 hours for 10 days. No refill. Substitution is permissible.(Disp 30 each) -- Romain Argueta Dr. [place] 5 mg / 325 mg tablets: take 1 orally every 6 hours as needed for pain. Dispense twelve (12). No refill. Substitution is permissible. -- Romain Argueta Dr.
--- NOTE | 2017-01-29 04:56 | ED MAR SUMMARY ---
..... Medication Administration Record [facility] [address] [facility] [place] [address] Patient: RAHEL CHAMPAGNE Visit ID: [id number] 61y, F Weight: 87.5 kg Height/Length: 68 in BMI: 29.3 ALLERGIES: No Known Drug Allergy Start 09:01/26/2017 Kandis Mccauley R.N. Medication Administered: IV NS (SALINE), Dose: IV Fluids over 1 hour(s), Rate: 500 mL/hr, Dispensed: 999 mL bag, Site: #1 left AC. Medication Ordered: IV NS : initial bolus 500 mL (1000 mL/hr), then 125 mL/hr for 4h (NOW); Urgent. Given 01/26/2017 Kandis Mccauley R.N. Medication Administered: ZOFRAN [IVP] (ONDANSETRON HCL), Dose: 4 mg IVP over 2 minute(s), Site: #1 left AC. Medication Ordered: Zofran IV 4 mg (NOW). Given 01/26/2017 Kandis Mccauley R.N. Medication Administered: DILAUDID [IVP] (HYDROMORPHONE HCL PF), Dose: 0.5 mg IVP over 1 minute(s), Site: #1 left AC. Medication Ordered: Dilaudid IV 0.5 mg (HIGH ALERT MEDICATION, NOW). Given 09:01/26/2017 Kandis Mccauley R.N. Medication Administered: POTASSIUM CHLORIDE [PO] (POTASSIUM CHLORIDE ER), Dose: 60 meq PO. Medication Ordered: Potassium Chloride PO 60 meq (NOW). Given 10:57 01/26/2017 Kandis Mccauley R.N. Medication Administered: PHENERGAN [IVP] (PROMETHAZINE HCL), Dose: 12.5 mg IVP over 1 minute(s), Site: #1 left AC. Medication Ordered: Phenergan IV 12.5 mg (HIGH ALERT MEDICATION, NOW). Given 11:57 01/26/2017 Sachi Lagos R.N. Medication Administered: CIPROFLOXACIN [PO] (CIPROFLOXACIN), Dose: 500 mg Tablets PO. Medication Ordered: Ciprofloxacin PO 500 mg (NOW). Given 12:02 01/26/2017 Sachi Lagos R.N. Medication Administered: FLAGYL [PO] (METRONIDAZOLE), Dose: 500 mg Tablets PO. Medication Ordered: Flagyl PO 500 mg (NOW).
== END 2017-01-26 12:00 | disposition home or self-care (01) ==
LOC: ED SRH 07:22
DX: K52.9 Noninfective gastroenteritis and colitis, unspecified (principal); R10.31 Right lower quadrant pain; R07.9 Chest pain, unspecified; E87.6 Hypokalemia; I10 Essential (primary) hypertension; D64.9 Anemia, unspecified; Z79.899 Other long term (current) drug therapy
CPT/HCPCS: 90004; 90100; 90616; 91320; 91556; 92235; 92530; 92720; 94060; 95059

== ENCOUNTER 2017-02-06 08:41 | Inpatient (IN) | payer OTHER ==
[~2017-02-06] VITALS: Ht 172.7 cm; Wt 87.4 kg
[~2017-02-06 08:41] MED LIST: BENADRYL ALLERG25 M1 PO; HYDROCHLOROTHIA25 MG PO; PRILOSEC20 MG; VALSARTAN80 MG PO; VENTOLIN HFA IN
--- NOTE | 2017-02-06 14:15 | OPERATIVE REPORT ---
DATE OF SURGERY: 02/06/2017 SURGEON: Arnulfo Bautista MD CAPSULE INSPECTOR: Viktoria Clifton III, MD PREOPERATIVE DIAGNOSIS: 1. Right colon carcinoma POSTOPERATIVE DIAGNOSIS: 1. Right colon carcinoma PROCEDURE PERFORMED: 1. Laparoscopic-assisted right hemicolectomy ANESTHESIA: General. INDICATIONS: The patient is a 61-year-old woman with right-sided abdominal pain, found to have a colon carcinoma on colonoscopy. SURGICAL TECHNIQUE: The patient was taken to the operating room, where a general anesthetic was administered and the patient prepped and draped in the usual sterile fashion. A Arana catheter, orogastric tube, IV antibiotics, and sequential compression devices were in place. The patient received a mechanical bowel preparation prior to surgery. A local anesthetic of 0.5% Marcaine with epinephrine was infiltrated, and an intraumbilical incision was made. A Veress needle was used to insufflate and a 10 mm cannula was passed. Two additional 5's were placed in the upper midline after identifying the tumor, which was in the distal right colon, toward the hepatic flexure. The right colon was mobilized along its lateral reflections. Medially, the greater omentum was also detached from the hepatic flexure where it was somewhat stuck to the area of the tumor and preserved. The ileum was found to be free so that the small bowel would reach upward in a tension-free manner. The right colon mesentery was mobilized toward the midline to allow free laxity of the tumor site. Once mobilization was complete using an atraumatic forceps and the Thunderbeat device, a transverse incision was made in the right lateral abdomen, above the umbilicus at the appropriate location. This was anesthetized with 0.5% Marcaine with epinephrine, and the abdominal cavity was entered. The right colon was drawn up onto the surface. At this point, the area selected for the distal anastomosis was taken down with a TANK stapling device and the terminal divided at its junction with the cecum with the same stapler. The mesocolon was taken down, incorporating a large wedge of mesentery using interrupted 2-0 Vicryl ligatures. The right colic vessel was tied at its root using a double tied 2-0 Vicryl. Specimen was taken off the field and eventually opened. This demonstrated the tumor completely within the specimen, with no close margins. A functional end-to-end anastomosis was carried out. The terminal ileum and the proximal transverse colon were lined up using interrupted 3-0 silk seromuscular sutures. The TANK stapler was used to create a common channel and a TA-55 used to close off the insertion site. The mesenteric defect was closely approximated when this was folded together. The anastomosis was returned to the abdominal cavity. The abdominal wall was closed with running #1 PDS suture. The abdomen was re-insufflated and the anastomotic site visualized and found to be hemostatic and properly aligned without twisting. The omentum was drawn up over it. Additional Marcaine was instilled, gas and fluid were evacuated, and the skin sites closed with interrupted or running subcuticular 4-0 Vicryl suture. Steri-Strips and dressings were applied. The patient left in stable condition. No intraoperative complications were encountered.
[2017-02-06 16:22] VITALS: BP 175/85
[2017-02-06 16:40] VITALS: BP 176/80
[2017-02-06 16:57] VITALS: BP 175/89
[2017-02-06 17:11] VITALS: BP 183/100
[2017-02-06 18:36] VITALS: BP 166/89
[2017-02-06 23:00] VITALS: BP 172/94
[2017-02-07 02:17] VITALS: BP 174/87
[2017-02-07 07:50] VITALS: BP 170/89
--- NOTE | 2017-02-07 07:53 | Progress Note ---
Subjective General POD #1 post lap assisted right hemicolectomy Pt. is without complaint, not too sore. Nurses report nausea with codeine compounds and suggest oral morphine vs IV if narcotics required. Physical Exam Vital Signs / I&Os Vital Signs Date Time Temp Pulse Resp B/P Pulse O2 O2 Flow FiO2 Ox Delivery Rate 02/07 0254 Nasal 2.0 Cannula / 0217 98.1 97 18 174/87 97 Nasal 2.0 Cannula 05/08 2300 97.9 89 18 172/94 97 Nasal 2.0 Cannula 05/08 1938 Nasal 4.0 Cannula 05/08 1839 98.1 05/08 1836 88 18 166/89 98 Nasal 4.0 Cannula 05/08 1834 4.0 05/08 1711 81 20 183/100 100 Nasal 4.0 Cannula 05/08 1707 4.0 05/08 1657 89 20 175/89 100 Nasal 4.0 Cannula 05/08 1640 72 20 176/80 100 Nasal 4.0 Cannula 05/08 1622 97.3 70 20 175/85 100 Nasal 4.0 Cannula 05/08 1612 98.1 75 17 169/80 100 Nasal 4.0 Cannula 05/08 1600 77 12 169/72 100 Nasal 4.0 Cannula 05/08 1550 82 14 146/98 100 Nasal 3.0 Cannula 05/08 1540 81 18 144/55 100 Nasal 3.0 Cannula 05/08 1530 82 14 160/73 100 Nasal 3.0 Cannula 05/08 1520 73 15 140/40 100 05/08 1510 65 11 161/79 100 Nasal 3.0 Cannula 05/08 1500 69 10 153/79 100 Nasal 4.0 Cannula 05/08 1450 68 9 153/76 100 Nasal 3.0 Cannula 05/08 1440 66 9 159/58 100 Nasal 4.0 Cannula 05/08 1430 70 9 156/68 100 Nasal 4.0 Cannula 05/08 1420 70 13 160/70 100 Nasal 3.0 Cannula 05/08 1410 68 10 153/61 100 Nasal 3.0 Cannula 05/08 1405 83 11 158/60 100 Nasal 4.0 Cannula 05/08 1400 67 9 148/54 98 Nasal 4.0 Cannula 05/08 1355 79 16 152/71 99 Nasal 3.0 Cannula 05/08 1351 98.1 79 14 152/71 99 Nasal 3.0 Cannula 05/08 0843 98.1 76 16 164/87 99 I&O 02/06 0800 02/06 1600 02/07 0000 Intake Total 1500 238 Output Total 50 925 Balance 1450 -687 General Appearance Alert, Oriented X3, Cooperative, No acute distress Lungs Clear to auscultation Abdomen Normal bowel sounds, Soft Assessment and Plan Problem List 1. S/P right hemicolectomy Plan change pain meds, clear liquid diet.
[2017-02-07 10:00] VITALS: BP 143/67
[2017-02-07 14:10] VITALS: BP 165/82
[2017-02-07 19:05] VITALS: BP 147/75
[2017-02-07 22:56] VITALS: BP 171/93
[2017-02-08 02:59] VITALS: BP 159/84
[2017-02-08 07:30] VITALS: BP 163/82
[2017-02-08 11:00] VITALS: BP 145/73
--- NOTE | 2017-02-08 13:13 | Provider's Discharge Care Plan ---
Problem, Goal, Plan Problem List 1. S/P right hemicolectomy
--- NOTE | 2017-02-08 13:13 | Provider's Discharge Care Plan ---
Problem, Goal, Plan Problem List 1. S/P right hemicolectomy
--- NOTE | 2017-02-08 13:15 | Progress Note ---
Subjective General POD 2 feels fine, erickson po fluids, no stool yet, no burping or nausea. Physical Exam Vital Signs / I&Os Vital Signs Date Time Temp Pulse Resp B/P Pulse O2 O2 Flow FiO2 Ox Delivery Rate 02/08 1100 69 18 145/73 97 Nasal 0.0 Cannula 02/08 0825 2.0 02/08 0730 98.6 65 18 163/82 96 Nasal 2.0 Cannula 02/08 0259 97.9 72 18 159/84 96 Nasal 2.0 Cannula 02/07 2342 2.0 02/07 2256 98.4 77 18 171/93 98 Nasal 2.0 Cannula 02/07 2114 2.0 02/07 1905 98.1 77 18 147/75 97 Nasal 2.0 Cannula 02/07 1410 98.1 81 18 165/82 98 Nasal 2.0 Cannula I&O 02/07 0800 02/07 1600 02/08 0000 Intake Total 0673 704 9079 Output Total 550 1250 1300 Balance 972 -1070 198 General Appearance Alert, Oriented X3, Cooperative Abdomen Normal bowel sounds, Soft, No tenderness Assessment and Plan Problem List 1. S/P right hemicolectomy Plan advance diet, home today if tolerating po and passing stool or gas
--- NOTE | 2017-02-08 13:15 | Progress Note ---
Subjective General POD 2 feels fine, erickson po fluids, no stool yet, no burping or nausea. Physical Exam Vital Signs / I&Os Vital Signs Date Time Temp Pulse Resp B/P Pulse O2 O2 Flow FiO2 Ox Delivery Rate 02/08 1100 69 18 145/73 97 Nasal 0.0 Cannula 02/08 0825 2.0 02/08 0730 98.6 65 18 163/82 96 Nasal 2.0 Cannula 02/08 0259 97.9 72 18 159/84 96 Nasal 2.0 Cannula 02/07 2342 2.0 02/07 2256 98.4 77 18 171/93 98 Nasal 2.0 Cannula 02/07 2114 2.0 02/07 1905 98.1 77 18 147/75 97 Nasal 2.0 Cannula 02/07 1410 98.1 81 18 165/82 98 Nasal 2.0 Cannula I&O 02/07 0800 02/07 1600 02/08 0000 Intake Total 8822 336 6033 Output Total 550 1250 1300 Balance 972 -1070 198 General Appearance Alert, Oriented X3, Cooperative Abdomen Normal bowel sounds, Soft, No tenderness Assessment and Plan Problem List 1. S/P right hemicolectomy Plan advance diet, home today if tolerating po and passing stool or gas
== END 2017-02-08 14:00 | disposition home or self-care (01) | DRG 331 ==
LOC: SCU SRH 08:41 → U SRH 10:30 → ACUTE2 SRH 16:50
PROVIDERS: ADMIT Surgery
PROC: 0DTF0ZZ Resection of Right Large Intestine, Open Approach (ICD-10-PCS; principal; 2017-02-06 10:30)
PROC: 0DNS4ZZ (ICD-10-PCS; principal; 2017-02-06 10:30)
DX: C18.2 Malignant neoplasm of ascending colon (principal); I10 Essential (primary) hypertension; E78.5 Hyperlipidemia, unspecified; M79.7 Fibromyalgia; D64.9 Anemia, unspecified
CPT/HCPCS: 50002; 60001; 70002; 80102; 80212; 80248; 80852; 81447; 82669; 82723; 82794; 82897; 83475; 83587; 83919; 83982; 84038; 84041; 84532; 90001; 90074; 90100; 90155; 91004; 92720; 93005; 95059

== ENCOUNTER 2017-02-10 21:41 | Emergency (ER) | payer OTHER ==
--- NOTE | 2017-02-10 23:19 | DIAGNOSTIC IMAGING REPORT ---
PROCEDURE: XR CHEST 1 VIEW INDICATION: CONGESTION TECHNIQUE: Portable AP view (2150 hours). COMPARISON: Compared to chest x-ray on 01/26/2017. FINDINGS: There is minor linear scarring or subsegmental atelectasis at the left lung base. Right lung is clear. Heart and mediastinum are normal. Thorax is normal. IMPRESSION: 1. Minor subsegmental atelectasis at the left lung base. 2. Otherwise negative chest.
--- NOTE | 2017-02-11 00:34 | DIAGNOSTIC IMAGING REPORT ---
PROCEDURE: CTA THORAX WITH CONTRAST INDICATION: Status post bowel resection for carcinoma. Shortness of breath. Elevated D-dimer. TECHNIQUE: 106 ml of Isovue 370 was injected intravenously and axial images were obtained of the entire thorax with 3D sagittal and coronal MIP reconstructions. COMPARISON: Compared to chest x-ray earlier today (02/10/2017). FINDINGS: There is mild subsegmental atelectasis at the lung bases. Lungs are otherwise clear. Pulmonary vessels are normal and there is no evidence of pulmonary embolus. Heart is of normal size. Left coronary vascular calcifications. Mediastinum is normal. Mild degenerative changes of the thoracic spine. IMPRESSION: 1. Mild bibasilar subsegmental atelectasis. 2. Otherwise negative CT pulmonary arteriogram. No evidence of pulmonary embolus. 3. Left coronary vascular calcifications. 4. Findings discussed with Dr. Romain Argueta.. All CT scans at this facility use dose modulation, iterative reconstruction, and/or weight-based dosing when appropriate to reduce radiation dose to as low as reasonably achievable.
--- NOTE | 2017-02-11 01:14 | ED ORDER SUMMARY ---
..... Patient: RAHEL CHAMPAGNE OrderSheet [facility] VisitID: [id number] [address] [place] [address] 61y, F Registration Date/Time: 02/10/2017 ORDER SHEET Weight: 87.5 kg (stated) Allergies: No Known Drug Allergy GENERAL ORDERS: Chest 1V Urgent (21:53 02/10/2017 DDean R.N. per protocol) (Ack 22:05 CHagerty ER Certified Legal Secretary Specialist) (22:10 CHagerty ER Certified Legal Secretary Specialist) Parts Advisor (Continuous) (SOB) (21:59 02/10/2017 Matty Marcial) (22:00 DDavis R.N.) CBC w Diff Urgent (22:00 02/10/2017 Matty Marcial) (22:00 DDavis R.N.) CMP Urgent (22:00 02/10/2017 Matty Marcial) (22:00 DDavis R.N.) PT with INR Urgent (22:00 02/10/2017 Matty Marcial) (22:00 DDavis R.N.) D-Dimer Urgent (22:00 02/10/2017 Matty Marcial) (22:00 DDavis R.N.) Troponin-I Urgent (22:00 02/10/2017 Matty Marcial) (22:00 DDavis R.N.) Pulse oximeter (22:00 02/10/2017 Matty Marcial) (22:00 DDavis R.N.) EKG - ER Stat (22:21 02/10/2017 Matty Marcial) (Ack 22:30 [employer] ER Certified Legal Secretary Specialist) (22:40 Denisa) CTA Thorax w Cont (No) (gfr 54) Urgent (23:16 02/10/2017 Matty Marcial) (Ack 23:20 [employer] Certified Legal Secretary Specialist) (0:28 Raghuger) MEDICATION ORDERS: IV FLUIDS: IV Saline Lock (22:00 02/10/2017 Matty Marcial) (22:01 DDavis R.N.) ORDER SHEET NOTES: [Electronically signed by Mehul Barron R.N. (01:25 02/11/2017)] [Electronically signed by Romain Argueta Dr. (08:00 02/11/2017)] [Electronically locked/signed by Mehul Barron R.N. (01:25 02/11/2017)]
--- NOTE | 2017-02-11 01:14 | ED NURSING NOTES ---
Clinical Report - Nurses [facility] [address] [place] [address] 02/10/2017 21:42 Patient: RAHEL CHAMPAGNE TRIAGE Triage time 2143. Acuity: LEVEL 3. Chief Complaint: (Pt had colon resection for cancer on Monday- was discharged on , states she has had "trouble catching my breath all afternoon" -- did have some mid-sternal chest pain earlier today lasting " a few seconds"). 21:43. --21:51 Itzel Cooley R.N. 21:46 02/10/17. BP: 171/109. HR: 95. RR: 22. O2 saturation: 99% on room air. Temp: 98 F. Pain level now: 5/10. Additional comments: pain in abd "where surgery was) . --21:51 Itzel Cooley R.N. Weight: 87.5 kg stated. Height/Length: 68 inches Per Patient. BMI: 29.3. --21:49 Itzel Cooley R.N. Medications Hydrochlorothiazide Oral 25 mg, daily. Omeprazole Oral 20 mg, daily. --22:26 Itzel Cooley R.N. Valsartan Oral 80 mg, daily. --22:26 Itzel Cooley R.N. Benadryl Oral 25 mg, daily. --22:28 Itzel Cooley R.N. tylenol 650mg every 6-8 hrs for pain . --22:30 Itzel Cooley R.N. Allergies No Known Drug Allergy. --21:50 Itzel Cooley R.N. History Arrived by private vehicle. Historian: patient. Accompanied by friend. Primary physician (Michele Perez did surgery). This started today. She has had a cough and chest pain. No fever. PAST MEDICAL HX: The patient is post-menopausal. SOCIAL HX: Never smoker. Occasional alcohol use. No drug use. --21:51 Itzel Cooley R.N. PROBLEMS: Colitis. Chest Pain. Tension-Type Headache. Anemia. Allergic Rhinitis. Hypokalemia. UTI - Urinary Tract Infection. Vertigo. Depression. Bipolar Disorder. Fibromyalgia. Hypertension. Gastroesophageal Reflux Disease. --21:51 Itzel Cooley R.N. ADDITIONAL SURGERIES: Breast biopsy. Colon resection. --21:51 Itzel Cooley R.N. Interventions ID band on patient. To treatment room. --21:51 Itzel Cooley R.N. PHYSICAL ASSESSMENT 21:50. Ambulatory to room. Patient gowned. GENERAL / NEURO / PSYCH: Alert. Oriented X 4. Appears anxious. RESPIRATORY: The patient can speak in full sentences. Nonproductive cough. GI / : ( states she has had 2 bowel movements since returning home, both were soft, and small amounts). SKIN: Skin is warm and dry. --21:53 Itzel Cooley R.N. NURSING PROGRESS NOTES 21:43. Patient gowned. Head of bed elevated. Reassurance given. Patient identifiers checked. Call light placed in reach. Side rails up. Bed placed in lowest position. Patient ready for evaluation- chart flagged. --21:52 Itzel Cooley R.N. 22:00 02/10/2017 Site #1 started via IV in the right antecubital space with an 20g angiocath; one attempt. Blood drawn: rainbow set. Labeled in the presence of the patient and sent to the lab. Saline lock flushed with 10 mL saline. --22:00 Mehul Barron R.N. 22:02 02/10/17. BP: 171/71. HR: 95. RR: 18. O2 saturation: 98% on room air. Temp: deferred. Additional comments: IV started lab drawn . --22:03 Itzel Cooley R.N. 22:04 02/10/17. Portable chest x-ray ordered, performed and shown to the ED physician. --22:04 Itzel Cooley R.N. 22:29 02/10/17. BP: 156/106. HR: 87. RR: 18. O2 saturation: 97%. Temp: deferred. Pain level now: 12/09. --22:30 Itzel Cooley R.N. 22:31 02/10/17. Care transferred and report given (Mehul Rushing, EDRN). --22:31 Itzel Cooley R.N. EKG time: (2235). EKG was ordered, performed by a tech and shown to the ED physician. --22:41 Elvie Orosco ( Patient to radiology with director radiation oncology). --23:28 Mehul Barron R.N. 23:50 02/10/2017 Site #1 removed. Catheter intact. Bandage applied (warm compress applied by [facility]). --23:55 Jona Yost R.N. 23:[address] reports pt IV site infiltrated during CT scan,. --23:56 Jona Yost R.N. 23:59 02/10/2017 Site #2 started via IV in the left antecubital space with an 18g angiocath, with aseptic technique and good blood return; one attempt. Saline lock flushed with 10 mL saline. --23:59 Mehul Barron R.N. ( I notified CT that the IV is in place, and the patient is ready to have her CT again.). --00:00 Mehul Barron R.N. 00:08. Patient transported to CT by stretcher with tech. --00:15 Jona Yost R.N. Patient returned from CT by stretcher with tech. (00:15). --00:15 Jona Yost R.N. Call light placed in reach. Side rails up x 1. Bed placed in lowest position. Brakes of bed on. Patient waiting for disposition. ( awake and alert. patient states "He said I can go."). --01:02 Mehul Barron R.N. DISPOSITION / DISCHARGE Departure time: 01:24. Condition at departure: stable. No learning barriers present. Discharge instructions provided and reviewed with the patient. Treatments reviewed. Reviewed referrals for followup. Patient and test cell technician verbalized understanding. Written instructions provided in Malaysian. The patient was discharged home and accompanied by test cell technician. She left the Emergency Department ambulatory and via private vehicle. [employer] Worker driving. --01:24 Mehul Barron R.N. 01:01 02/11/17. BP: 173/72 taken on the right arm, while sitting. HR: 90. RR: 20 (regular and unlabored). O2 saturation: 98% on room air. Pain level now: 0/10. --01:24 Mehul Barron R.N. 01:22 02/11/2017 Site #2 removed upon discharge. Manual pressure and bandage applied. --01:25 Mehul Barron R.N. Locked/Released at 02/11/2017 1:25 by Mehul Barron R.N.
--- NOTE | 2017-02-11 01:14 | ED ORDER SUMMARY ---
..... Patient: RAHEL CHAMPAGNE OrderSheet [facility] VisitID: [id number] [address] [place] [address] 61y, F Registration Date/Time: 02/10/2017 ORDER SHEET Weight: 87.5 kg (stated) Allergies: No Known Drug Allergy GENERAL ORDERS: Chest 1V Urgent (21:53 02/10/2017 DDean R.N. per protocol) (Ack 22:05 [facility] Building Code Inspector) (22:10 [facility] Building Code Inspector) Diesel Instructor (Continuous) (SOB) (21:59 02/10/2017 Matty Marcial) (22:00 DDavis R.N.) CBC w Diff Urgent (22:00 02/10/2017 Matty Marcial) (22:00 DDavis R.N.) CMP Urgent (22:00 02/10/2017 Matty Marcial) (22:00 DDavis R.N.) PT with INR Urgent (22:00 02/10/2017 Matty Marcial) (22:00 DDavis R.N.) D-Dimer Urgent (22:00 02/10/2017 Matty Marcial) (22:00 DDavis R.N.) Troponin-I Urgent (22:00 02/10/2017 Matty Marcial) (22:00 DDavis R.N.) Pulse oximeter (22:00 02/10/2017 Matty Marcial) (22:00 DDavis R.N.) EKG - ER Stat (22:21 02/10/2017 Matty Marcial) (Ack 22:30 [employer] [facility] Building Code Inspector) (22:40 Denisa) CTA Thorax w Cont (No) (gfr 54) Urgent (23:16 02/10/2017 Matty Marcial) (Ack 23:20 [employer] [facility] Building Code Inspector) (0:28 Raghuger) MEDICATION ORDERS: IV FLUIDS: IV Saline Lock (22:00 02/10/2017 Matty Marcial) (22:01 DDavis R.N.) ORDER SHEET NOTES: [Electronically signed by Mehul Barron R.N. (01:25 02/11/2017)] [Electronically signed by Romain Argueta Dr. (08:00 02/11/2017)] [Electronically locked/signed by Mehul Barron R.N. (01:25 02/11/2017)]
--- NOTE | 2017-02-11 01:14 | ED NURSING NOTES ---
Clinical Report - Nurses [facility] [address] [place] [address] 02/10/2017 21:42 Patient: RAHEL CHAMPAGNE TRIAGE Triage time 2143. Acuity: LEVEL 3. Chief Complaint: (Pt had colon resection for cancer on Monday- was discharged on , states she has had "trouble catching my breath all afternoon" -- did have some mid-sternal chest pain earlier today lasting " a few seconds"). 21:43. --21:51 Itzel Cooley R.N. 21:46 02/10/17. BP: 171/109. HR: 95. RR: 22. O2 saturation: 99% on room air. Temp: 98 F. Pain level now: 5/10. Additional comments: pain in abd "where surgery was) . --21:51 Itzel Cooley R.N. Weight: 87.5 kg stated. Height/Length: 68 inches Per Patient. BMI: 29.3. --21:49 Itzel Cooley R.N. Medications Hydrochlorothiazide Oral 25 mg, daily. Omeprazole Oral 20 mg, daily. --22:26 Itzel Cooley R.N. Valsartan Oral 80 mg, daily. --22:26 Itzel Cooley R.N. Benadryl Oral 25 mg, daily. --22:28 Itzel Cooley R.N. tylenol 650mg every 6-8 hrs for pain . --22:30 Itzel Cooley R.N. Allergies No Known Drug Allergy. --21:50 Itzel Cooley R.N. History Arrived by private vehicle. Historian: patient. Accompanied by friend. Primary physician (Michele Perez did surgery). This started today. She has had a cough and chest pain. No fever. PAST MEDICAL HX: The patient is post-menopausal. SOCIAL HX: Never smoker. Occasional alcohol use. No drug use. --21:51 Itzel Cooley R.N. PROBLEMS: Colitis. Chest Pain. Tension-Type Headache. Anemia. Allergic Rhinitis. Hypokalemia. UTI - Urinary Tract Infection. Vertigo. Depression. Bipolar Disorder. Fibromyalgia. Hypertension. Gastroesophageal Reflux Disease. --21:51 Itzel Cooley R.N. ADDITIONAL SURGERIES: Breast biopsy. Colon resection. --21:51 Itzel Cooley R.N. Interventions ID band on patient. To treatment room. --21:51 Itzel Cooley R.N. PHYSICAL ASSESSMENT 21:50. Ambulatory to room. Patient gowned. GENERAL / NEURO / PSYCH: Alert. Oriented X 4. Appears anxious. RESPIRATORY: The patient can speak in full sentences. Nonproductive cough. GI / : ( states she has had 2 bowel movements since returning home, both were soft, and small amounts). SKIN: Skin is warm and dry. --21:53 Itzel Cooley R.N. NURSING PROGRESS NOTES 21:43. Patient gowned. Head of bed elevated. Reassurance given. Patient identifiers checked. Call light placed in reach. Side rails up. Bed placed in lowest position. Patient ready for evaluation- chart flagged. --21:52 Itzel Cooley R.N. 22:00 02/10/2017 Site #1 started via IV in the right antecubital space with an 20g angiocath; one attempt. Blood drawn: rainbow set. Labeled in the presence of the patient and sent to the lab. Saline lock flushed with 10 mL saline. --22:00 Mehul Barron R.N. 22:02 02/10/17. BP: 171/71. HR: 95. RR: 18. O2 saturation: 98% on room air. Temp: deferred. Additional comments: IV started lab drawn . --22:03 Itzel Cooley R.N. 22:04 02/10/17. Portable chest x-ray ordered, performed and shown to the ED physician. --22:04 Itzel Cooley R.N. 22:29 02/10/17. BP: 156/106. HR: 87. RR: 18. O2 saturation: 97%. Temp: deferred. Pain level now: 12/09. --22:30 Itzel Cooley R.N. 22:31 02/10/17. Care transferred and report given (Mehul Rushing, EDRN). --22:31 Itzel Cooley R.N. EKG time: (2235). EKG was ordered, performed by a tech and shown to the ED physician. --22:41 Elvie Orosco ( Patient to radiology with abrasive grader). --23:28 Mehul Barron R.N. 23:50 02/10/2017 Site #1 removed. Catheter intact. Bandage applied (warm compress applied by [facility]). --23:55 Jona Yost R.N. 23:[address] reports pt IV site infiltrated during CT scan,. --23:56 Jona Yost R.N. 23:59 02/10/2017 Site #2 started via IV in the left antecubital space with an 18g angiocath, with aseptic technique and good blood return; one attempt. Saline lock flushed with 10 mL saline. --23:59 Mehul Barron R.N. ( I notified CT that the IV is in place, and the patient is ready to have her CT again.). --00:00 Mehul Barron R.N. 00:08. Patient transported to CT by stretcher with tech. --00:15 Jona Yost R.N. Patient returned from CT by stretcher with tech. (00:15). --00:15 Jona Yost R.N. Call light placed in reach. Side rails up x 1. Bed placed in lowest position. Brakes of bed on. Patient waiting for disposition. ( awake and alert. patient states "He said I can go."). --01:02 Mehul Barron R.N. DISPOSITION / DISCHARGE Departure time: 01:24. Condition at departure: stable. No learning barriers present. Discharge instructions provided and reviewed with the patient. Treatments reviewed. Reviewed referrals for followup. Patient and hostel manager verbalized understanding. Written instructions provided in Swiss. The patient was discharged home and accompanied by hostel manager. She left the Emergency Department ambulatory and via private vehicle. Cardiology Nurse driving. --01:24 Mehul Barron R.N. 01:01 02/11/17. BP: 173/72 taken on the right arm, while sitting. HR: 90. RR: 20 (regular and unlabored). O2 saturation: 98% on room air. Pain level now: 0/10. --01:24 Mehul Barron R.N. 01:22 02/11/2017 Site #2 removed upon discharge. Manual pressure and bandage applied. --01:25 Mehul Barron R.N. Locked/Released at 02/11/2017 1:25 by Mehul Barron R.N.
--- NOTE | 2017-02-11 01:14 | ED CLINICAL REPORT ---
Clinical Report - Physicians/Mid Levels [facility] [address] [place] [address] 02/10/2017 21:42 Patient: RAHEL CHAMPAGNE Time Seen: 2153. Arrived- By private vehicle. Historian- patient. HISTORY OF PRESENT ILLNESS Chief Complaint: DYSPNEA. This started past day or two and is still present. It was gradual in onset and has been constant but is not gone now. The dyspnea is described as moderate. No cough, fever, wheezing, chest pain or calf pain. No foot swelling. Similar symptoms previously: None. Recent medical care: The patient was seen recently in the emergency department and a clinic. ( recent partial colon resection for colon CA.). REVIEW OF SYSTEMS No nausea or abdominal pain. All systems otherwise negative, except as recorded above. PAST HISTORY See nurses notes. Medications: tylenol 650mg every 6-8 hrs for pain . Benadryl Oral 25 mg, daily. Valsartan Oral 80 mg, daily. Hydrochlorothiazide Oral 25 mg, daily. Omeprazole Oral 20 mg, daily. Allergies: No Known Drug Allergy. SOCIAL HISTORY Never smoker. No alcohol use or drug use. No recent travel. Is a local resident. ADDITIONAL NOTES The nursing notes have been reviewed. PHYSICAL EXAM Vital Signs: 02/10/2017 21:46 BP: 171/109. HR: 95. RR: 22. O2 saturation: 99%. Temp: 98 F. Pain level now: 5/10. Hypertensive. Oxygen saturation normal. Appearance: Alert. No acute distress. CVS: Normal heart rate and rhythm. Heart sounds normal. Pulses normal. Respiratory: No respiratory distress. Breath sounds normal. No wheezes, stridor, rales or rhonchi. Abdomen: Soft. (Appropriate tenderness given recent surgery. Wounds are clean dry and intact. No erythema. No crepitus. No bleeding.). Skin: Skin warm and dry. Normal skin color. No rash. Normal skin turgor. Extremities: Extremities exhibit normal ROM. No lower extremity edema. Neuro: Oriented X 3. No motor deficit. No sensory deficit. LABS, X-RAYS, AND EKG EKG: No acute ischemia. Normal sinus rhythm. Rate: 86. Normal P waves. Normal RUDY. Normal QRS complex. Normal axis. Normal ST and T waves and QT. Prolonged QTc (509). The study has been interpreted contemporaneously. The study has been independently viewed by me. The EKG appears to be a good tracing. Chest X-ray: (PROCEDURE: XR CHEST 1 VIEW INDICATION: CONGESTION TECHNIQUE: Portable AP view (2150 hours). COMPARISON: Compared to chest x-ray on 01/26/2017. FINDINGS: There is minor linear scarring or subsegmental atelectasis at the left lung base. Right lung is clear. Heart and mediastinum are normal. Thorax is normal. IMPRESSION: 1. Minor subsegmental atelectasis at the left lung base. 2. Otherwise negative chest.). Views: AP (portable). The X-rays were independently viewed by me and interpreted by the radiologist. The X-rays were discussed with the radiologist (via pacs). Chest CT: (PROCEDURE: CTA THORAX WITH CONTRAST INDICATION: Status post bowel resection for carcinoma. Shortness of breath. Elevated D-dimer. TECHNIQUE: 106 ml of Isovue 370 was injected intravenously and axial images were obtained of the entire thorax with 3D sagittal and coronal MIP reconstructions. COMPARISON: Compared to chest x-ray earlier today (02/10/2017). FINDINGS: There is mild subsegmental atelectasis at the lung bases. Lungs are otherwise clear. Pulmonary vessels are normal and there is no evidence of pulmonary embolus. Heart is of normal size. Left coronary vascular calcifications. Mediastinum is normal. Mild degenerative changes of the thoracic spine. IMPRESSION: 1. Mild bibasilar subsegmental atelectasis. 2. Otherwise negative CT pulmonary arteriogram. No evidence of pulmonary embolus.). The study was independently viewed by me and interpreted by the radiologist. The study was discussed with the radiologist (via phone and pacs). Laboratory Tests: CBC w Diff: (THOM: 02/10/2017 22:00) ( MsgRcvd 02/10/2017 22:11) Final results Test Result Flag Units (Reference) WHITE BLOOD COUNT 8.4 K/uL (4.5-11.5) RED BLOOD COUNT 3.99 L M/uL (4.00-5.20) HEMOGLOBIN 9.5 L gm/dL (12.0-16.0) HEMATOCRIT 29.4 L % (36.0-46.0) MEAN CELL VOLUME 74 L fL (80-100) MEAN CORPUSCULAR HGB 24 L pg (26-34) MEAN CORPUSCULAR HGB CONC 32 g/dL (31-37) RED CELL DISTRIBUTION WIDTH 16.4 H % (11.6-14.8) PLATELET COUNT 449 H K/uL (150-400) NEUTROPHIL % 62.1 % (50-75) LYMPH % 28.8 % (25-40) MONO % 6.4 % (3-14) EOSINOPHIL % 2.1 % (0-4) BASOPHIL % 0.6 % (0-2) PT with INR: (THOM: 02/10/2017 22:00) ( MsgRcvd 02/11/2017 00:11) Final results Test Result Flag Units (Reference) D-DIMER QUANTITATIVE 1.10 H ug/mLFEU (0.27-0.52) The primary value of this quantitative assay relates toits negative predictive value (i.e. exclusion) of pulmonaryembolism/deep vein thrombosis/DIC.Elevated levels of d-dimer may also occur with:, age, cancer, inflammation, liver disease,post-op, infection, hematoma, coronary disease, peripheralarteriopathy, bleeding disorders and thrombolytic treatment.Results should be correlated with other clinical andradiological data.Testing Methodology: Latex Immunoassay INR 0.9 (0.8-1.2) Low Intensity Therapy: INR 1.5-2.0 PT range 18.5-23.1Mod.Intensity Therapy: INR 2.0-3.0 PT range 23.1-31.5High Intensity Therapy: INR 2.5-3.5 PT range 27.4-35.5High Intensity Therapy 2: INR 3.0-4.0 PT range 31.5-39.3 CMP: (THOM: 02/10/2017 22:00) ( MsgRcvd 02/10/2017 22:35) Final results Test Result Flag Units (Reference) GLUCOSE 125 H mg/dL (70-110) BUN 16 mg/dL (7-18) CREATININE 1.1 mg/dL (0.6-1.3) Estimated GFR 53.85 mL/min Estimated GFR- >60 mL/min Note: Persistent reduction over 3 months in eGFR<60 mL/min/1.73 m2 defines CKD. Patients with eGFR values>=60 mL/min/1.73 m2 may also have CKD if evidence ofpersistent proteinuria. Additional information may be foundat www.kidney.org. SODIUM 140 mmol/L (136-145) POTASSIUM 3.2 L mmol/L (3.5-5.1) CHLORIDE 101 mmol/L (98-107) CARBON DIOXIDE 29 mmol/L (21-32) CALCIUM 9.1 mg/dL (8.5-10.1) TOTAL PROTEIN 7.6 g/dL (6.4-8.2) ALBUMIN 3.3 g/dL (3.3-5.0) BILIRUBIN, TOTAL 0.2 mg/dL (0.0-1.0) ALKALINE PHOSPHATASE 79 U/L (46-116) AST (SGOT) 13 L U/L (15-37) ALT (SGPT) 21 U/L (12-78) TROPONIN I <0.05 ng/mL (0.00-1.5) TROPONIN REFERENCE RANGE:<0.1 NEGATIVE0.1-1.5 INDETERMINANT>1.5 POSITIVE . PROGRESS AND PROCEDURES Course of Care: The patient is a pleasant 61-year-old female with recent surgery presenting for evaluation shortness of breath. Differential diagnosis at this time includes pulmonary embolism, acute myocardial infarction, pneumonia. Patient is agreeable to treatment plan. Patient will initially be evaluated for chest x-ray, EKG, laboratory studies. Had discussion patient in regards to a d-dimer study. Patient is agreeable to this and with possible need for CTA. Patient's workup was remarkable for the findings above. His troponin is noted to be negative. D-dimer is elevated and will require CTA. Discussed with patient her workup here in the emergency department and the need for a CT. CT is noted to have no findings for pulmonary embolism. Patient with atelectasis. Patient likely with shortness of breath secondary to not taking deep breaths because of the abdominal surgical sites. Encouraged patient to take deep breaths and use a pillow to splint her abdomen in order to take deep breaths. Discussed with patient that she is at increased risk forhaving a pneumonia if she does nottake adequate deep breaths. Do not fill patient is being admitted to the hospital require further emergency department workup/evaluation. Patient's hemoglobin and hematocrit are noted to be increased from her last visit here in the emergency department. Discussed with patient workup in the emergency department for any diagnosis, home care, follow-up, and return precautions. All questions have been answered. The patient expressed understanding of these instructions and was agreeable to them. Prior to patient's departure from the emergency department she is noted to be resting in bed and in no acute distress. Patient is smiling and in good spirits. Disposition: Discharged. Condition: good. CLINICAL IMPRESSION 02/11/2017 01:01 BP: 173/72. HR: 90. RR: 20. O2 saturation: 98%. Pain level now: 0/10. 02/11/2017 00:00 HR: 83. RR: 20. O2 saturation: 98%. Acute dyspnea Hypertensive. Oxygen saturation normal. Essential hypertension. INSTRUCTIONS Warnings: GENERAL WARNINGS: Return or contact your physician immediately if your condition worsens or changes unexpectedly, if not improving as expected, or if other problems arise. SPECIFICALLY, return if you develop chest pain, fever, productive cough, difficulty breathing, excessive fatigue, a fluttering sensation in the chest, fainting or leg swelling. Your Current Medications: CONTINUE TAKING THE FOLLOWING MEDICATIONS: Benadryl Oral : 25 mg daily. Hydrochlorothiazide Oral : 25 mg daily. Omeprazole Oral : 20 mg daily. tylenol 650mg every 6-8 hrs for pain *. Valsartan Oral : 80 mg daily. Follow-up: Return to the emergency department as needed. Follow up with your doctor in three. Reason for referral: recheck today's concerns. Summary of care provided to patient via paper. Screening today revealed the patient's blood pressure to be in the normal range. The patient should follow up with a primary care provider for blood pressure management. Understanding of the discharge instructions verbalized by patient. (Electronically signed by Romain Argueta Dr. 02/11/2017 8:00)
--- NOTE | 2017-02-11 08:01 | ED MAR SUMMARY ---
..... Medication Administration Record Located Within [facility] [address], [place] [id number] Patient: RAHEL CHAMPAGNE Visit ID: [id number] 61y, F Weight: 87.5 kg Height/Length: 68 in BMI: 29.3 ALLERGIES: No Known Drug Allergy
--- NOTE | 2017-02-11 08:01 | ED MAR SUMMARY ---
..... Medication Administration Record [facility] [address], [place] [id number] Patient: RAHEL CHAMPAGNE Visit ID: [id number] 61y, F Weight: 87.5 kg Height/Length: 68 in BMI: 29.3 ALLERGIES: No Known Drug Allergy
--- NOTE | 2017-02-11 08:01 | ED MED RECONCILIATION SUMMARY ---
Patient: RAHEL CHAMPAGNE Medication Reconciliation Report [facility] VisitID: [id number] [address] [place] [address] 61y, F Registration Date/Time: 02/10/2017 Weight: 87.5 kg Height/Length: 68 in. BMI: 29.3 ALLERGIES: No Known Drug Allergy The patient's Home Medications are listed below: CONTINUE TAKING THE FOLLOWING MEDICATIONS: Benadryl Oral 25 mg, daily Hydrochlorothiazide Oral 25 mg, daily Omeprazole Oral 20 mg, daily tylenol 650mg every 6-8 hrs for pain Valsartan Oral 80 mg, daily The source(s) of the original Home Medication information: Not obtained. The following Medications were given to the patient in the Emergency Department: None. The following Medications were prescribed to the patient: None.
--- NOTE | 2017-02-11 08:01 | ED MED RECONCILIATION SUMMARY ---
Patient: RAHEL CHAMPAGNE Medication Reconciliation Report [facility] VisitID: [id number] [address] [place] [address] 61y, F Registration Date/Time: 02/10/2017 Weight: 87.5 kg Height/Length: 68 in. BMI: 29.3 ALLERGIES: No Known Drug Allergy The patient's Home Medications are listed below: CONTINUE TAKING THE FOLLOWING MEDICATIONS: Benadryl Oral 25 mg, daily Hydrochlorothiazide Oral 25 mg, daily Omeprazole Oral 20 mg, daily tylenol 650mg every 6-8 hrs for pain Valsartan Oral 80 mg, daily The source(s) of the original Home Medication information: Not obtained. The following Medications were given to the patient in the Emergency Department: None. The following Medications were prescribed to the patient: None.
--- NOTE | 2017-02-11 08:01 | ED DISCHARGE INSTRUCTIONS ---
Patient: RAHEL CHAMPAGNE General Instructions [facility] VisitID: [id number] [address] [place] [address] 61y, F Registration Date/Time: 02/10/2017 02/11/2017 01:01 BP: 173/72. HR: 90. RR: 20. O2 saturation: 98%. Pain level now: 0/10. 02/11/2017 00:00 HR: 83. RR: 20. O2 saturation: 98%. Acute dyspnea Hypertensive. Oxygen saturation normal. Essential hypertension. INSTRUCTIONS Warnings: GENERAL WARNINGS: Return or contact your physician immediately if your condition worsens or changes unexpectedly, if not improving as expected, or if other problems arise. SPECIFICALLY, return if you develop chest pain, fever, productive cough, difficulty breathing, excessive fatigue, a fluttering sensation in the chest, fainting or leg swelling. Your Current Medications: CONTINUE TAKING THE FOLLOWING MEDICATIONS: Benadryl Oral : 25 mg daily. Hydrochlorothiazide Oral : 25 mg daily. Omeprazole Oral : 20 mg daily. tylenol 650mg every 6-8 hrs for pain *. Valsartan Oral : 80 mg daily. Follow-up: Return to the emergency department as needed. Follow up with your doctor in three. Reason for referral: recheck today's concerns. Summary of care provided to patient via paper. Screening today revealed the patient's blood pressure to be in the normal range. The patient should follow up with a primary care provider for blood pressure management. Understanding of the discharge instructions verbalized by patient. ADDITIONAL INFORMATION High Blood Pressure --Established High Blood Pressure (Hypertension) is a chronic disease. The cause is unknown in most cases. It can usually be controlled with lifestyle changes and/or medicines. Symptoms of high blood pressure may include headache, dizziness, visual changes, chest pain and shortness of breath. Sometimes it causes no symptoms at all. However, even if there are no symptoms, untreated high blood pressure increases the risk of heart attack, also known as acute myocardial infarction, or AMI, and stroke. It is a serious health risk and should not be ignored. A normal blood pressure is 120/80 or less. The first (top) number is the "systolic" pressure. The second (bottom) number is the "diastolic" pressure. Hypertension exists when either the top number is 140 or higher, OR the bottom number is 90 or higher on repeated measurements. Home Care: All patients with high blood pressure should do the following to lower their pressure. If you are on medicines, then these methods may reduce or eliminate your need for medicines in the future. Begin a weight loss program if you are overweight. Reduce your salt intake. Avoid high salt foods (olives, pickles, smoked meats, salted potato chips, etc.). Do not add salt to your food at the table. Use only small amounts of salt when cooking. Begin an exercise program. Discuss with your doctor what type of exercise program would be best for you. It doesn't have to be difficult. Even brisk walking for 20 minutes three times a week is a good form of exercise. Avoid medicines which contain heart stimulants. This includes many cold and sinus decongestant pills and sprays as well as diet pills. Check the warnings about hypertension on the label. Stimulants such as amphetamine or cocaine could be lethal for someone with hypertension. Never take these. Limit your caffeine intake or switch to caffeine-free products. Stop smoking. If you are a long-time smoker, this can be hard. Enroll in a stop-smoking program to improve your chance of success. Learning how to handle stress better is an important part of any program to lower blood pressure. Learn about relaxation methods such as meditation, yoga or biofeedback. If medicines were prescribed, take them exactly as directed. Missing doses may cause your blood pressure get out of control. Consider buying an automatic blood pressure machine (available at most pharmacies). Use this to monitor your blood pressure at home and report the results to your doctor. Follow Up: Regular visits to your own physician for blood pressure checks and medicine adjustment is an important part of your care. Make a follow-up appointment as directed by our staff. Get Prompt Medical Attention if any of the following occur: Chest pain or shortness of breath Severe headache Throbbing or rushing sound in the ears Nosebleed Sudden severe abdominal pain Extreme drowsiness, confusion or fainting Dizziness or vertigo (dizziness with spinning sensation) Weakness of an arm or leg or one side of the face Difficulty with speech or vision Dyspnea (Shortness Of Breath) Shortness of Breath (also known as "Dyspnea") is the sense that you can't catch your breath or can't get enough air. Dyspnea can be caused by many different conditions such as: Acute asthma attack Worsening of emphysema (also called "COPD") -- a lung diseasethat is caused by smoking A mucus plug blocks a large air passage in the lung -- this can occur with emphysema or chronic bronchitis Congestive Heart Failure ("CHF") -- when a weak heart muscle allows excess fluid to collect inthe lungs Panic attacks, anxiety -- fear can cause rapid breathing ("hyperventilation") Pneumonia -- infection in the lung tissue Exposure to toxic fumes or smoke Pulmonary embolus (blood clot to the lung) Based on your visit today, the exact cause of your shortness of breath is not certain. Your tests do not show any of the serious causes of dyspnea. Sometimes, further testing is needed to find out if a serious problem exists. Therefore, it is important for you to watch for any new symptoms or worsening of your condition and follow up with your doctor as directed. Home Care: When your symptoms are better, resume your usual activities. If you smoke, you need to stop. Join a stop-smoking program or ask your doctor for help. Follow Up with your doctor or as advised by our staff. Get Prompt Medical Attention if any of the following occur: Increasing shortness of breath or wheezing Redness, pain or swelling in one leg Swelling in both legs or ankles Unexpected weight gain Chest, arm, shoulder, neck or upper back pain Dizziness, weakness or fainting Palpitations (the sense that your heart is fluttering, beating fast or hard) Fever of 100.4F (38C) or higher, or as directed by your healthcare provider Cough with dark colored or bloody sputum (mucus) You have been given the following additional information: Hypertension, Established Dyspnea (Electronically signed by Romain Argueta Dr. 02/11/2017 8:00)
== END 2017-02-11 01:27 | disposition home or self-care (01) ==
LOC: ED SRH 21:41
DX: R06.00 Dyspnea, unspecified (principal); I10 Essential (primary) hypertension; Z98.890 Other specified postprocedural states; Z79.899 Other long term (current) drug therapy; Z79.1 Long term (current) use of non-steroidal anti-inflammatories (NSAID)
CPT/HCPCS: 90100; 90616; 91282; 91556; 92668; 92670; 94060; 95059